=== PATIENT | male | born 1970 | race Caucasian/White ===

== ENCOUNTER 2017-05-05 17:02 | Inpatient (IN) | payer MEDICAID ==
[~2017-05-05] VITALS: Ht 177.8 cm; Wt 101.2 kg
[2017-05-05] MEDS ORDERED: SODIUM CHLORIDE 0.9% 1,000 ML IV ONE (18:49)
[2017-05-05] MEDS ORDERED: FOLIC ACID 1 MG, THIAMINE HCL 100 MG, MVI, ADULT NO.1 10 ML in DEXTROSE 5% WATER 1,000 ML IV ONE ×4 (19:00)
[2017-05-05] MEDS ORDERED: LEVETIRACETAM 500MG PREMIX 100 ML IV ONE (19:00)
[2017-05-05] MEDS ORDERED: LORAZEPAM 2MG/ML CPJ IV ONE (19:00)
[2017-05-05 19:37] LABS: BASOPHILS % 0.9 % (0.0-2.0); EOSINOPHILS % 0.4 % (0.0-5.0); HEMATOCRIT. 39.8 % (42.0-52.0); HEMOGLOBIN. 13.6 g/dL (14.0-18.0); LYMPHOCYTES % 16.2 % (20.0-50.0); MEAN CORPUSCULAR HEMOGLOBIN 32.3 pg (28.0-32.0); MEAN CORPUSCULAR VOLUME 94.6 fL (80.0-94.0); MEAN PLATELET VOLUME 8.6 fl (7.4-10.4); MONOCYTES % 6.3 % (2.0-8.0); NEUTROPHILS % 76.2 % (40.0-76.0); RED BLOOD CELL COUNT 4.21 mill/uL (4.7-6.1); RED CELL DISTRIBUTION WIDTH 13.6 % (11.6-14.6)
[2017-05-05 19:42] LABS: PLATELET 40 x1000/uL (130-400)
[2017-05-05 19:44] LABS: CHLORIDE 96 mEq/L (98-107)
[2017-05-05 19:47] LABS: CARBON DIOXIDE 28 mEq/L (21-32)
[2017-05-05 19:49] LABS: ETHANOL BLOOD < 10 mg/dL
[2017-05-05 19:55] LABS: PHENOBARBITAL <2.1 ug/mL ug/mL (15.0-40.0)
[2017-05-05 20:23] LABS: CARBAMAZEPINE < 0.5 ug/mL (4-12); VALPROIC ACID < 3.0 ug/mL (50-100)
[2017-05-05 20:54] LABS: *AMPHETAMINES SCREEN URINE NEGATIVE (NEGATIVE); *BARBITURATES SCREEN URINE NEGATIVE (NEGATIVE); *BENZODIAZEPINES SCREEN URINE NEGATIVE (NEGATIVE); *COCAINE SCREEN URINE NEGATIVE (NEGATIVE); CANNABINOID URINE SCREEN NEGATIVE (NEGATIVE); METHADONE URINE SCREEN NEGATIVE (NEGATIVE); OPIATES URINE SCREEN NEGATIVE (NEGATIVE); PHENCYCLIDINE URINE SCREEN NEGATIVE (NEGATIVE)
[2017-05-06] MEDS ORDERED: IPRATROPIUM/ALBUTEROL 0.5-3(2.5)MG/3ML NEB INH PRN (01:00)
[2017-05-06] MEDS ORDERED: ACETAMINOPHEN 325MG TABLET PO PRN (01:00)
[2017-05-06] MEDS ORDERED: CLONIDINE 0.1MG TABLET PO PRN (01:00)
[2017-05-06] MEDS ORDERED: LORAZEPAM 2MG/ML CPJ IV PRN (01:00)
[2017-05-06] MEDS ORDERED: ONDANSETRON HCL 4MG/2ML VIAL IV PRN (01:00)
[2017-05-06] MEDS ORDERED: ENOXAPARIN 40MG/0.4ML SYR SUBCUT SCH (01:00)
[2017-05-06] MEDS ORDERED: HYDROCODONE/ACETAMINOPHEN 5/325MG TABLET PO PRN (01:00)
[2017-05-06] MEDS ORDERED: MAGNESIUM/ALUMINUM HYDROXIDE/SIMETHICONE 30ML UDC PO PRN (01:00)
[2017-05-06 01:30] VITALS: BP 129/69
[2017-05-06] MEDS: SODIUM CHLORIDE 0.9% 1,000 ML IV SCH ×2 (02:23→15:40)
[2017-05-06 04:00] VITALS: BP 106/53
[2017-05-06 05:17] LABS: CLARITY URINE CLEAR (CLEAR); COLOR URINE YELLOW (YELLOW); KETONES URINE NEGATIVE (NEGATIVE); LEUKOCYTE ESTERASE URINE NEGATIVE (NEGATIVE); NITRITE URINE NEGATIVE (NEGATIVE); OCCULT BLOOD URINE NEGATIVE (NEGATIVE); PH URINE 6.5 (4.5-8.0); PROTEIN URINE NEGATIVE (NEGATIVE); SPECIFIC GRAVITY URINE 1.008 (1.005-1.030)
[2017-05-06] MEDS: CHLORDIAZEPOXIDE 25MG CAPSULE PO SCH ×3 (06:30→21:41)
[2017-05-06 07:02] LABS: BASOPHILS % 0.6 % (0.0-2.0); EOSINOPHILS % 2.4 % (0.0-5.0); HEMATOCRIT. 36.8 % (42.0-52.0); HEMOGLOBIN. 12.4 g/dL (14.0-18.0); LYMPHOCYTES % 23.2 % (20.0-50.0); MEAN CORPUSCULAR HEMOGLOBIN 31.9 pg (28.0-32.0); MEAN CORPUSCULAR VOLUME 94.4 fL (80.0-94.0); MEAN PLATELET VOLUME 9.2 fl (7.4-10.4); MONOCYTES % 7.2 % (2.0-8.0); NEUTROPHILS % 66.6 % (40.0-76.0); RED CELL DISTRIBUTION WIDTH 13.8 % (11.6-14.6)
[2017-05-06 07:28] LABS: PLATELET 33 x1000/uL (130-400)
[2017-05-06 08:00] VITALS: BP 105/55
[2017-05-06 08:00] LABS: CARBON DIOXIDE 26 mEq/L (21-32); CHLORIDE 101 mEq/L (98-107)
[2017-05-06 08:11] LABS: CREATINE KINASE 441 IU/L (39-308); CREATINE KINASE MB FRACTION 6.7 ng/mL (0.5-3.6); HDL CHOLESTEROL 13 mg/dL (40-59); LDL CHOLESTEROL 144 mg/dL (5-100); TROPONIN I < 0.02 ng/mL (0.00-0.04)
[2017-05-06] MEDS: MULTIVITAMINS,THER W-MINERALS TABLET PO SCH (08:28)
[2017-05-06] MEDS: FOLIC ACID 1MG TABLET PO SCH (08:28)
[2017-05-06] MEDS: THIAMINE HCL 100MG TABLET PO SCH (08:28)
[2017-05-06] MEDS: LEVETIRACETAM 500MG TABLET PO SCH ×2 (08:28→21:40)
[2017-05-06] MEDS ORDERED: POTASSIUM CHLORIDE 20MEQ TABLET SR PO NR (11:30)
[2017-05-06 12:00] VITALS: BP 111/67
[2017-05-06 16:00] VITALS: BP 124/79
[2017-05-06 16:47] LABS: CREATINE KINASE 366 IU/L (39-308); TROPONIN I < 0.02 ng/mL (0.00-0.04)
[2017-05-06 16:48] LABS: CREATINE KINASE MB FRACTION 5.4 ng/mL (0.5-3.6)
[2017-05-06 17:51] LABS: HEPATITIS B SURFACE ANTIGEN NEGATIVE
[2017-05-06 18:19] LABS: HEPATITIS B CORE AB IGM NEGATIVE
[2017-05-06 18:20] LABS: HEPATITIS A AB IGM NEGATIVE (NEGATIVE)
[2017-05-06 19:39] VITALS: BP 122/83
[2017-05-07] VITALS: BP 134/79
[2017-05-07 04:00] VITALS: BP 118/78
[2017-05-07] MEDS: CHLORDIAZEPOXIDE 25MG CAPSULE PO SCH (05:05)
[2017-05-07] MEDS: SODIUM CHLORIDE 0.9% 1,000 ML IV SCH (05:13)
[2017-05-07 07:24] LABS: BASOPHILS % 1.1 % (0.0-2.0); EOSINOPHILS % 3.4 % (0.0-5.0); HEMOGLOBIN. 12.2 g/dL (14.0-18.0); LYMPHOCYTES % 26.7 % (20.0-50.0); MEAN CORPUSCULAR HEMOGLOBIN 32.1 pg (28.0-32.0); MEAN CORPUSCULAR VOLUME 94.8 fL (80.0-94.0); MEAN PLATELET VOLUME 9.1 fl (7.4-10.4); NEUTROPHILS % 60.8 % (40.0-76.0); RED CELL DISTRIBUTION WIDTH 13.5 % (11.6-14.6)
[2017-05-07 07:59] LABS: PLATELET 35 x1000/uL (130-400)
[2017-05-07 08:00] VITALS: BP 147/83
[2017-05-07 08:06] LABS: CARBON DIOXIDE 23 mEq/L (21-32); CHLORIDE 105 mEq/L (98-107)
[2017-05-07] MEDS: FOLIC ACID 1MG TABLET PO SCH (08:16)
[2017-05-07] MEDS: THIAMINE HCL 100MG TABLET PO SCH (08:16)
[2017-05-07] MEDS: LEVETIRACETAM 500MG TABLET PO SCH (08:16)
[2017-05-07] MEDS: MULTIVITAMINS,THER W-MINERALS TABLET PO SCH (08:16)
[2017-05-07 10:40] LABS: PLATELET ESTIMATE MARKEDLY DECREASED
[2017-05-08 08:00] VITALS: BP 124/42
== END 2017-05-07 10:15 | disposition left against medical advice (07) | DRG 770 ==
LOC: ER 17:06 → 8WST 21:33 → EDBEDREQTM 21:37 → EDBEDREQ 21:37 → ENRESERV 22:30
PROVIDERS: ADMIT Internal Medicine; ATTEND Internal Medicine
DX: F10.239 Alcohol dependence with withdrawal, unspecified (principal); D69.59 Other secondary thrombocytopenia; G40.409 Other generalized epilepsy and epileptic syndromes, not intractable, without status epilepticus; E78.5 Hyperlipidemia, unspecified; E87.6 Hypokalemia; F17.200 Nicotine dependence, unspecified, uncomplicated; K76.9 Liver disease, unspecified; Z91.14 Patient's other noncompliance with medication regimen; Z91.19 Patient's noncompliance with other medical treatment and regimen; Z91.013 Allergy to seafood
CPT/HCPCS: 36415; 70450; 71045; 76705; 80053; 80061; 80156; 80165; 80184; 80185; 80305; 81003; 82550; 82553; 84443; 84484; 85025; 86705; 86709; 86803; 87340; 93005; 93970; 96374; 96375; 97162; 99285; G0482; J1953; J2060; J3411; J3490; J7030; J7070

== ENCOUNTER 2017-11-16 08:17 | Inpatient (IN) | payer SELFPAY ==
[~2017-11-16] VITALS: Ht 177.8 cm; Wt 100.7 kg
[2017-11-16] MEDS ORDERED: SODIUM CHLORIDE 0.9% 1,000 ML IV ONE (08:28)
[2017-11-16] MEDS ORDERED: MIDAZOLAM HCL 2 MG/2 ML VIAL IV ONE (08:30)
[2017-11-16] MEDS ORDERED: CHLORDIAZEPOXIDE 25MG CAPSULE PO ONE (08:30)
[2017-11-16] MEDS ORDERED: LEVETIRACETAM 1000MG/100ML 100 ML IV ONE (08:30)
[2017-11-16 08:51] LABS: BASOPHILS % 0.3 % (0.0-2.0); EOSINOPHILS % 1.3 % (0.0-5.0); HEMATOCRIT. 38.3 % (42.0-52.0); HEMOGLOBIN. 13.1 g/dL (14.0-18.0); LYMPHOCYTES % 15.7 % (20.0-50.0); MEAN CORPUSCULAR HEMOGLOBIN 32.5 pg (28.0-32.0); MEAN CORPUSCULAR VOLUME 95.1 fL (80.0-94.0); MONOCYTES % 7.5 % (2.0-8.0); NEUTROPHILS % 75.2 % (40.0-76.0); PLATELET 68 x1000/uL (130-400); RED BLOOD CELL COUNT 4.02 mill/uL (4.7-6.1); RED CELL DISTRIBUTION WIDTH 14.1 % (11.6-14.6)
[2017-11-16 08:56] LABS: CHLORIDE 97 mEq/L (98-107)
[2017-11-16 08:59] LABS: INR 1.1; PARTIAL THROMBOPLASTIN TIME 27.3 sec (23.4-31.0)
[2017-11-16 09:00] LABS: ETHANOL BLOOD < 10 mg/dL
[2017-11-16 09:04] LABS: CREATINE KINASE 270 IU/L (39-308)
[2017-11-16 09:10] LABS: *COCAINE SCREEN URINE NEGATIVE (NEGATIVE); CANNABINOID URINE SCREEN NEGATIVE (NEGATIVE); METHADONE URINE SCREEN NEGATIVE (NEGATIVE); OPIATES URINE SCREEN NEGATIVE (NEGATIVE)
[2017-11-16 09:11] LABS: *AMPHETAMINES SCREEN URINE NEGATIVE (NEGATIVE); *BARBITURATES SCREEN URINE NEGATIVE (NEGATIVE); *BENZODIAZEPINES SCREEN URINE NEGATIVE (NEGATIVE); PHENCYCLIDINE URINE SCREEN NEGATIVE (NEGATIVE)
[2017-11-16 13:30] VITALS: BP 115/73
[2017-11-16] MEDS ORDERED: ONDANSETRON HCL 4MG/2ML VIAL IV PRN (15:00)
[2017-11-16] MEDS ORDERED: DEXTROSE 5% WATER 1,000 ML IV SCH (15:30)
[2017-11-16] MEDS: SODIUM CHLORIDE 0.9% 1,000 ML IV SCH (16:43)
[2017-11-16] MEDS ORDERED: FOLIC ACID 1 MG, THIAMINE HCL 100 MG, MVI, ADULT NO.1 10 ML in DEXTROSE 5% WATER 1,000 ML IV SCH ×4 (17:00)
[2017-11-16 20:00] VITALS: BP 133/80
[2017-11-16] MEDS: CHLORDIAZEPOXIDE 5 MG CAPSULE PO SCH (21:26)
[2017-11-17] VITALS: BP 131/77
[2017-11-17] MEDS: CHLORDIAZEPOXIDE 5 MG CAPSULE PO SCH ×3 (06:25→21:46)
[2017-11-17] MEDS: SODIUM CHLORIDE 0.9% 1,000 ML IV SCH ×2 (06:25→11:45)
[2017-11-17 07:34] LABS: BASOPHILS % 2.4 % (0.0-2.0); EOSINOPHILS % 5.1 % (0.0-5.0); HEMATOCRIT. 37.1 % (42.0-52.0); HEMOGLOBIN. 12.7 g/dL (14.0-18.0); MEAN CORPUSCULAR HEMOGLOBIN 32.3 pg (28.0-32.0); MEAN CORPUSCULAR VOLUME 94.3 fL (80.0-94.0); MEAN PLATELET VOLUME 8.5 fl (7.4-10.4); MONOCYTES % 9.7 % (2.0-8.0); NEUTROPHILS % 57.8 % (40.0-76.0); RED BLOOD CELL COUNT 3.93 mill/uL (4.7-6.1); RED CELL DISTRIBUTION WIDTH 13.5 % (11.6-14.6)
[2017-11-17 07:38] LABS: PLATELET 48 x1000/uL (130-400)
[2017-11-17 08:00] VITALS: BP 120/72
[2017-11-17 08:44] LABS: CHLORIDE 102 mEq/L (98-107)
[2017-11-17 09:37] LABS: AMYLASE 157 IU/L (25-115)
[2017-11-17] MEDS ORDERED: POTASSIUM CHLORIDE 20MEQ TABLET SR PO SCH (10:30)
[2017-11-17 12:00] VITALS: BP 125/73
[2017-11-17 16:00] VITALS: BP 128/74
[2017-11-17] MEDS ORDERED: FOLIC ACID 1 MG, THIAMINE HCL 100 MG, MVI, ADULT NO.1 10 ML in DEXTROSE 5% WATER 1,000 ML IV SCH ×4 (18:30)
[2017-11-17 20:00] VITALS: BP 127/78
[2017-11-17] MEDS: LEVETIRACETAM 500MG TABLET PO SCH (21:46)
[2017-11-18] VITALS: BP 132/94
[2017-11-18] MEDS: LORAZEPAM 2MG/ML CPJ IV PRN ×2 (00:56→04:40)
[2017-11-18 04:00] VITALS: BP 110/72
[2017-11-18] MEDS: CHLORDIAZEPOXIDE 5 MG CAPSULE PO SCH ×2 (04:40→15:01)
[2017-11-18 07:52] LABS: BASOPHILS % 0.7 % (0.0-2.0); EOSINOPHILS % 6.1 % (0.0-5.0); HEMATOCRIT. 38.7 % (42.0-52.0); HEMOGLOBIN. 13.2 g/dL (14.0-18.0); LYMPHOCYTES % 23.4 % (20.0-50.0); MEAN CORPUSCULAR HEMOGLOBIN 32.4 pg (28.0-32.0); MEAN CORPUSCULAR VOLUME 95.2 fL (80.0-94.0); MEAN PLATELET VOLUME 8.5 fl (7.4-10.4); MONOCYTES % 11.8 % (2.0-8.0); PLATELET 56 x1000/uL (130-400); RED BLOOD CELL COUNT 4.07 mill/uL (4.7-6.1); RED CELL DISTRIBUTION WIDTH 13.7 % (11.6-14.6)
[2017-11-18 08:00] VITALS: BP 108/75
[2017-11-18] MEDS: LEVETIRACETAM 500MG TABLET PO SCH (08:56)
[2017-11-18 09:09] LABS: CHLORIDE 104 mEq/L (98-107)
[2017-11-18 11:33] LABS: PLATELET ESTIMATE DECREASED
[2017-11-18 12:00] VITALS: BP 108/75
[2017-11-18 16:00] VITALS: BP 117/73
[2017-11-18 16:30] VITALS: BP 117/63
== END 2017-11-18 17:15 | disposition home or self-care (01) | DRG 282 ==
LOC: ER 08:17 → 5WST 09:05 → EDBEDREQ 09:08 → ENRESERV 12:26
PROVIDERS: ADMIT Internal Medicine; ATTEND Internal Medicine
DX: K85.20 Alcohol induced acute pancreatitis without necrosis or infection (principal); D69.6 Thrombocytopenia, unspecified; E78.5 Hyperlipidemia, unspecified; F17.200 Nicotine dependence, unspecified, uncomplicated; R74.0 Nonspecific elevation of levels of transaminase and lactic acid dehydrogenase [LDH]; G40.509 Epileptic seizures related to external causes, not intractable, without status epilepticus; F10.230 Alcohol dependence with withdrawal, uncomplicated; Y90.0 Blood alcohol level of less than 20 mg/100 ml; Z91.14 Patient's other noncompliance with medication regimen; Z88.8 Allergy status to other drugs, medicaments and biological substances
CPT/HCPCS: 36415; 70450; 71045; 80048; 80053; 80061; 80305; 82150; 82550; 83690; 84484; 85025; 85610; 85730; 96361; 96374; 96375; 99291; G0482; J1953; J2060; J2250; J3411; J3490; J7030; J7070

== ENCOUNTER 2018-05-08 11:46 | Emergency (ER) | payer MEDICAID ==
[~2018-05-08] VITALS: Ht 175.3 cm; Wt 90.0 kg
[2018-05-08] MEDS ORDERED: SODIUM CHLORIDE 0.9% 1,000 ML IV ONE (12:11)
[2018-05-08] MEDS ORDERED: LEVETIRACETAM 1000MG/100ML 100 ML IV ONE (12:15)
[2018-05-08 14:01] LABS: BASOPHILS % 1.2 % (0.0-2.0); EOSINOPHILS % 0.7 % (0.0-5.0); HEMATOCRIT. 36.9 % (42.0-52.0); HEMOGLOBIN. 12.4 g/dL (14.0-18.0); LYMPHOCYTES % 11.2 % (20.0-50.0); MEAN CORPUSCULAR HEMOGLOBIN 31.6 pg (28.0-32.0); MEAN PLATELET VOLUME 8.9 fl (7.4-10.4); MONOCYTES % 6.5 % (2.0-8.0); NEUTROPHILS % 80.4 % (40.0-76.0); RED BLOOD CELL COUNT 3.92 mill/uL (4.7-6.1)
[2018-05-08 14:07] LABS: CHLORIDE 98 mEq/L (98-107)
[2018-05-08 14:08] LABS: PLATELET 30 x1000/uL (130-400)
[2018-05-08 14:11] LABS: ETHANOL BLOOD < 10 mg/dL
[2018-05-08 14:21] LABS: PLATELET ESTIMATE SLIGHTLY DECREASED
[2018-05-08 16:46] LABS: CLARITY URINE CLOUDY (CLEAR); COLOR URINE DARK YELLOW (YELLOW); KETONES URINE NEGATIVE (NEGATIVE); LEUKOCYTE ESTERASE URINE NEGATIVE (NEGATIVE); NITRITE URINE NEGATIVE (NEGATIVE); OCCULT BLOOD URINE TRACE (NEGATIVE); PROTEIN URINE TRACE (NEGATIVE); SPECIFIC GRAVITY URINE 1.014 (1.005-1.030)
[2018-05-08 16:57] LABS: *AMPHETAMINES SCREEN URINE NEGATIVE (NEGATIVE); *BARBITURATES SCREEN URINE NEGATIVE (NEGATIVE); *BENZODIAZEPINES SCREEN URINE NEGATIVE (NEGATIVE); *COCAINE SCREEN URINE NEGATIVE (NEGATIVE); CANNABINOID URINE SCREEN NEGATIVE (NEGATIVE); METHADONE URINE SCREEN NEGATIVE (NEGATIVE); OPIATES URINE SCREEN NEGATIVE (NEGATIVE); PHENCYCLIDINE URINE SCREEN NEGATIVE (NEGATIVE)
[2018-05-08] MEDS ORDERED: CHLORDIAZEPOXIDE 25MG CAPSULE PO ONE (17:00)
[2018-05-08 21:30] VITALS: BP 122/81
== END 2018-05-08 21:31 | disposition home or self-care (01) ==
LOC: ER 11:46
DX: R56.9 Unspecified convulsions (principal); F10.20 Alcohol dependence, uncomplicated; Y90.0 Blood alcohol level of less than 20 mg/100 ml; Z91.013 Allergy to seafood
CPT/HCPCS: 36415; 80053; 80305; 81003; 82962; 85025; 96365; 99283; G0482; J1953

== ENCOUNTER 2018-05-29 14:11 | Inpatient (IN) | payer MEDICAID ==
[~2018-05-29] VITALS: Ht 139.7 cm; Wt 99.8 kg
[2018-05-29] MEDS ORDERED: SODIUM CHLORIDE 0.9% 1,000 ML IV ONE (15:26)
[2018-05-29] MEDS ORDERED: LORAZEPAM 1MG TABLET PO ONE (15:30)
[2018-05-29] MEDS ORDERED: LEVETIRACETAM 1000MG/100ML 100 ML IV ONE (15:30)
[2018-05-29 16:28] LABS: BASOPHILS % 1.1 % (0.0-2.0); EOSINOPHILS % 2.4 % (0.0-5.0); HEMATOCRIT. 36.8 % (42.0-52.0); HEMOGLOBIN. 12.5 g/dL (14.0-18.0); LYMPHOCYTES % 17.1 % (20.0-50.0); MEAN CORPUSCULAR HEMOGLOBIN 33.1 pg (28.0-32.0); MEAN CORPUSCULAR VOLUME 97.3 fL (80.0-94.0); MEAN PLATELET VOLUME 8.4 fl (7.4-10.4); NEUTROPHILS % 72.4 % (40.0-76.0); RED BLOOD CELL COUNT 3.78 mill/uL (4.7-6.1); RED CELL DISTRIBUTION WIDTH 15.7 % (11.6-14.6)
[2018-05-29 16:32] LABS: CHLORIDE 97 mEq/L (98-107)
[2018-05-29 16:38] LABS: PLATELET 46 x1000/uL (130-400)
[2018-05-29 16:39] LABS: ETHANOL BLOOD < 10 mg/dL
[2018-05-29 16:50] LABS: INR 1.3; PARTIAL THROMBOPLASTIN TIME 30.6 sec (23.4-31.0); PROTHROMBIN TIME 12.6 sec (9.1-11.1)
[2018-05-29] MEDS ORDERED: ONDANSETRON HCL 4MG/2ML INJ IV PRN (18:15)
[2018-05-29] MEDS ORDERED: LORAZEPAM 2MG/ML CPJ IV PRN (18:15)
[2018-05-29 18:32] LABS: CLARITY URINE CLEAR (CLEAR); COLOR URINE ORANGE (YELLOW); KETONES URINE TRACE (NEGATIVE); LEUKOCYTE ESTERASE URINE TRACE (NEGATIVE); NITRITE URINE NEGATIVE (NEGATIVE); OCCULT BLOOD URINE TRACE (NEGATIVE); PH URINE 6.5 (4.5-8.0); PROTEIN URINE NEGATIVE (NEGATIVE)
[2018-05-29] MEDS: THIAMINE HCL 100MG TABLET PO SCH (18:45)
[2018-05-29] MEDS ORDERED: FOLIC ACID 1 MG, MVI, ADULT NO.1 10 ML in DEXTROSE 5% WATER 1,000 ML IV NR ×3 (18:45)
[2018-05-29 18:52] LABS: *AMPHETAMINES SCREEN URINE PRESUMTIVE POSITIVE (NEGATIVE); *BARBITURATES SCREEN URINE NEGATIVE (NEGATIVE); *BENZODIAZEPINES SCREEN URINE NEGATIVE (NEGATIVE); *COCAINE SCREEN URINE NEGATIVE (NEGATIVE); METHADONE URINE SCREEN NEGATIVE (NEGATIVE); OPIATES URINE SCREEN NEGATIVE (NEGATIVE)
[2018-05-29 18:53] LABS: CANNABINOID URINE SCREEN NEGATIVE (NEGATIVE); PHENCYCLIDINE URINE SCREEN NEGATIVE (NEGATIVE)
[2018-05-29] MEDS ORDERED: LEVETIRACETAM 500MG TABLET PO SCH (21:00)
[2018-05-29] MEDS ORDERED: LEVETIRACETAM 500MG TABLET PO NR (21:11)
[2018-05-30 02:55] VITALS: BP 136/79
[2018-05-30] MEDS ORDERED: TRAZ150T78 PO (03:18)
[2018-05-30] MEDS ORDERED: KEPP500 PO (03:18)
[2018-05-30 04:00] VITALS: BP 106/58
[2018-05-30] MEDS: DEXT 5%/0.45% NACL 1000ML 1,000 ML IV SCH ×2 (04:27→13:40)
[2018-05-30] MEDS: CHLORDIAZEPOXIDE 25MG CAPSULE PO SCH ×3 (04:27→22:27)
[2018-05-30] MEDS: ACETAMINOPHEN 325MG TABLET PO PRN (04:31)
[2018-05-30 08:00] VITALS: BP 106/62
[2018-05-30] MEDS: LEVETIRACETAM 500MG TABLET PO SCH ×2 (09:03→22:27)
[2018-05-30] MEDS: THIAMINE HCL 100MG TABLET PO SCH (09:03)
[2018-05-30 09:07] LABS: CHLORIDE 104 mEq/L (98-107)
[2018-05-30 09:13] LABS: BASOPHILS % 1.2 % (0.0-2.0); EOSINOPHILS % 3.5 % (0.0-5.0); HEMATOCRIT. 35.6 % (42.0-52.0); HEMOGLOBIN. 12.5 g/dL (14.0-18.0); MEAN CORPUSCULAR HEMOGLOBIN 34.3 pg (28.0-32.0); MEAN CORPUSCULAR VOLUME 97.8 fL (80.0-94.0); MEAN PLATELET VOLUME 8.7 fl (7.4-10.4); MONOCYTES % 7.5 % (2.0-8.0); NEUTROPHILS % 67.8 % (40.0-76.0); RED BLOOD CELL COUNT 3.64 mill/uL (4.7-6.1)
[2018-05-30 09:20] LABS: PLATELET 46 x1000/uL (130-400)
[2018-05-30 12:00] VITALS: BP 120/71
[2018-05-30 15:21] LABS: PLATELET ESTIMATE MARKEDLY DECREASED
[2018-05-30 16:00] VITALS: BP 125/76
[2018-05-30] MEDS: CEFTRIAXONE 1,000 MG in DEXTROSE 5% WATER 50 ML IV SCH (17:01)
[2018-05-30] MEDS ORDERED: FOLIC ACID 1 MG, MVI, ADULT NO.1 10 ML in DEXTROSE 5% WATER 1,000 ML IV SCH ×3 (19:00)
[2018-05-30 20:00] VITALS: BP 145/85
[2018-05-31] VITALS: BP 143/83
[2018-05-31] MEDS: FOLIC ACID 1 MG, MVI, ADULT NO.1 10 ML in DEXTROSE 5% WATER 1,000 ML IV SCH ×6 (00:28→23:37)
[2018-05-31] MEDS: ACETAMINOPHEN 325MG TABLET PO PRN (00:30)
[2018-05-31 04:00] VITALS: BP 110/57
[2018-05-31] MEDS: CHLORDIAZEPOXIDE 25MG CAPSULE PO SCH ×3 (05:58→21:27)
[2018-05-31 07:03] LABS: BASOPHILS % 1.2 % (0.0-2.0); EOSINOPHILS % 4.9 % (0.0-5.0); HEMATOCRIT. 36.6 % (42.0-52.0); HEMOGLOBIN. 12.4 g/dL (14.0-18.0); LYMPHOCYTES % 25.5 % (20.0-50.0); MEAN CORPUSCULAR HEMOGLOBIN 33.3 pg (28.0-32.0); MEAN CORPUSCULAR VOLUME 98.4 fL (80.0-94.0); MEAN PLATELET VOLUME 9.2 fl (7.4-10.4); MONOCYTES % 10.1 % (2.0-8.0); NEUTROPHILS % 58.3 % (40.0-76.0); PLATELET 55 x1000/uL (130-400); RED BLOOD CELL COUNT 3.72 mill/uL (4.7-6.1); RED CELL DISTRIBUTION WIDTH 14.9 % (11.6-14.6)
[2018-05-31 08:00] VITALS: BP 120/79
[2018-05-31 08:12] LABS: CHLORIDE 108 mEq/L (98-107)
[2018-05-31] MEDS: LEVETIRACETAM 500MG TABLET PO SCH ×2 (08:41→21:26)
[2018-05-31] MEDS: THIAMINE HCL 100MG TABLET PO SCH (08:41)
[2018-05-31] MEDS: DEXT 5%/0.45% NACL 1000ML 1,000 ML IV SCH (11:22)
[2018-05-31 12:00] VITALS: BP 125/65
[2018-05-31] MEDS: CEFTRIAXONE 1,000 MG in DEXTROSE 5% WATER 50 ML IV SCH (15:19)
[2018-05-31 16:00] VITALS: BP 118/70
[2018-05-31 20:00] VITALS: BP 128/80
[2018-06-01] VITALS: BP 124/81
[2018-06-01 04:00] VITALS: BP 127/79
[2018-06-01] MEDS: ACETAMINOPHEN 325MG TABLET PO PRN (05:01)
[2018-06-01] MEDS: CHLORDIAZEPOXIDE 25MG CAPSULE PO SCH ×3 (06:00→21:55)
[2018-06-01 07:15] LABS: BASOPHILS % 1.1 % (0.0-2.0); EOSINOPHILS % 4.3 % (0.0-5.0); HEMATOCRIT. 36.7 % (42.0-52.0); HEMOGLOBIN. 12.4 g/dL (14.0-18.0); LYMPHOCYTES % 30.1 % (20.0-50.0); MEAN CORPUSCULAR HEMOGLOBIN 33.4 pg (28.0-32.0); MEAN PLATELET VOLUME 8.5 fl (7.4-10.4); MONOCYTES % 11.3 % (2.0-8.0); NEUTROPHILS % 53.2 % (40.0-76.0); PLATELET 66 x1000/uL (130-400); RED BLOOD CELL COUNT 3.71 mill/uL (4.7-6.1); RED CELL DISTRIBUTION WIDTH 15.3 % (11.6-14.6)
[2018-06-01 08:00] VITALS: BP 136/84
[2018-06-01] MEDS: THIAMINE HCL 100MG TABLET PO SCH (08:29)
[2018-06-01] MEDS: LEVETIRACETAM 500MG TABLET PO SCH ×2 (08:29→21:55)
[2018-06-01 09:56] LABS: CHLORIDE 107 mEq/L (98-107)
[2018-06-01 12:00] VITALS: BP 130/83
[2018-06-01] MEDS: DEXT 5%/0.45% NACL 1000ML 1,000 ML IV SCH (12:47)
[2018-06-01] MEDS: LACTULOSE 20G/30ML UDC PO SCH ×2 (13:26→21:55)
[2018-06-01 16:00] VITALS: BP 116/71
[2018-06-01] MEDS ORDERED: VANCOMYCIN 2,000 MG in DEXT 5% WATER 500 ML IV NR (17:00)
[2018-06-01 20:00] VITALS: BP 130/80
[2018-06-01] MEDS: FOLIC ACID 1 MG, MVI, ADULT NO.1 10 ML in DEXTROSE 5% WATER 1,000 ML IV SCH ×3 (23:16)
[2018-06-02] VITALS: BP 106/62
[2018-06-02] MEDS: DEXT 5%/0.45% NACL 1000ML 1,000 ML IV SCH ×3 (03:00→13:00)
[2018-06-02 03:51] VITALS: BP 113/64
[2018-06-02] MEDS: LACTULOSE 20G/30ML UDC PO SCH ×3 (05:29→21:03)
[2018-06-02] MEDS: CHLORDIAZEPOXIDE 25MG CAPSULE PO SCH ×3 (05:29→21:03)
[2018-06-02] MEDS: VANCOMYCIN 1250MG in DEXTROSE 5% WATER 250ML IV SCH ×2 (05:29→18:53)
[2018-06-02 06:58] LABS: BASOPHILS % 1.1 % (0.0-2.0); EOSINOPHILS % 5.4 % (0.0-5.0); HEMATOCRIT. 35.2 % (42.0-52.0); HEMOGLOBIN. 11.9 g/dL (14.0-18.0); LYMPHOCYTES % 30.8 % (20.0-50.0); MEAN CORPUSCULAR HEMOGLOBIN 33.6 pg (28.0-32.0); MEAN CORPUSCULAR VOLUME 99.2 fL (80.0-94.0); MEAN PLATELET VOLUME 8.7 fl (7.4-10.4); MONOCYTES % 13.8 % (2.0-8.0); NEUTROPHILS % 48.9 % (40.0-76.0); PLATELET 68 x1000/uL (130-400); RED BLOOD CELL COUNT 3.55 mill/uL (4.7-6.1); RED CELL DISTRIBUTION WIDTH 15.1 % (11.6-14.6)
[2018-06-02 07:10] LABS: CHLORIDE 103 mEq/L (98-107)
[2018-06-02 08:00] VITALS: BP 133/79
[2018-06-02] MEDS: LEVETIRACETAM 500MG TABLET PO SCH ×2 (08:42→21:03)
[2018-06-02] MEDS: THIAMINE HCL 100MG TABLET PO SCH (08:42)
[2018-06-02 12:00] VITALS: BP 107/61
[2018-06-02 16:00] VITALS: BP 117/70
[2018-06-02 20:00] VITALS: BP 128/81
[2018-06-03] VITALS: BP 120/72
[2018-06-03] MEDS: FOLIC ACID 1 MG, MVI, ADULT NO.1 10 ML in DEXTROSE 5% WATER 1,000 ML IV SCH ×3 (00:35)
[2018-06-03 04:00] VITALS: BP 100/71
[2018-06-03] MEDS: VANCOMYCIN 1250MG in DEXTROSE 5% WATER 250ML IV SCH (05:28)
[2018-06-03] MEDS: LACTULOSE 20G/30ML UDC PO SCH ×2 (05:28→13:41)
[2018-06-03] MEDS: CHLORDIAZEPOXIDE 25MG CAPSULE PO SCH ×2 (05:28→13:41)
[2018-06-03] MEDS: ACETAMINOPHEN 325MG TABLET PO PRN (05:28)
[2018-06-03 06:48] LABS: BASOPHILS % 1.3 % (0.0-2.0); EOSINOPHILS % 5.8 % (0.0-5.0); HEMATOCRIT. 37.3 % (42.0-52.0); HEMOGLOBIN. 12.7 g/dL (14.0-18.0); LYMPHOCYTES % 34.6 % (20.0-50.0); MEAN CORPUSCULAR HEMOGLOBIN 33.9 pg (28.0-32.0); MEAN CORPUSCULAR VOLUME 99.3 fL (80.0-94.0); MEAN PLATELET VOLUME 8.5 fl (7.4-10.4); MONOCYTES % 13.7 % (2.0-8.0); NEUTROPHILS % 44.6 % (40.0-76.0); PLATELET 73 x1000/uL (130-400); RED BLOOD CELL COUNT 3.75 mill/uL (4.7-6.1); RED CELL DISTRIBUTION WIDTH 15.1 % (11.6-14.6)
[2018-06-03 06:57] LABS: CHLORIDE 105 mEq/L (98-107)
[2018-06-03 08:00] VITALS: BP 107/64
[2018-06-03] MEDS: THIAMINE HCL 100MG TABLET PO SCH (08:37)
[2018-06-03] MEDS: LEVETIRACETAM 500MG TABLET PO SCH (08:37)
[2018-06-03] MEDS: DEXT 5%/0.45% NACL 1000ML 1,000 ML IV SCH (11:42)
[2018-06-03] MEDS ORDERED: KEPP500 PO (11:57)
[2018-06-03 12:00] VITALS: BP 128/76
[2018-06-03 12:27] VITALS: BP 128/76
== END 2018-06-03 14:22 | disposition home or self-care (01) | DRG 720 ==
LOC: ER 14:11 → EDBEDREQ 17:12 → ENRESERV 05-30 02:18 → EDBEDREQ 05-30 02:54 → 7WST 05-30 03:16
PROVIDERS: ADMIT Internal Medicine; ATTEND Internal Medicine
DX: A41.9 Sepsis, unspecified organism (principal); D61.818 Other pancytopenia; D69.59 Other secondary thrombocytopenia; E44.1 Mild protein-calorie malnutrition; E87.1 Hypo-osmolality and hyponatremia; E87.8 Other disorders of electrolyte and fluid balance, not elsewhere classified; F10.239 Alcohol dependence with withdrawal, unspecified; F41.9 Anxiety disorder, unspecified; N39.0 Urinary tract infection, site not specified; E66.9 Obesity, unspecified; R74.0 Nonspecific elevation of levels of transaminase and lactic acid dehydrogenase [LDH]; F15.10 Other stimulant abuse, uncomplicated; G40.409 Other generalized epilepsy and epileptic syndromes, not intractable, without status epilepticus; F17.210 Nicotine dependence, cigarettes, uncomplicated; S01.01XA Laceration without foreign body of scalp, initial encounter; X58.XXXA Exposure to other specified factors, initial encounter; K70.9 Alcoholic liver disease, unspecified; Z68.43 Body mass index [BMI] 50.0-59.9, adult; Z91.19 Patient's noncompliance with other medical treatment and regimen; Z91.14 Patient's other noncompliance with medication regimen; Z91.013 Allergy to seafood; Z79.899 Other long term (current) drug therapy; Y93.89 Activity, other specified; Y92.89 Other specified places as the place of occurrence of the external cause; Y99.8 Other external cause status
CPT/HCPCS: 36415; 70551; 71045; 71111; 80048; 80202; 80305; 82140; 83036; 83735; 84145; 93970; 96365; 99285; G0482; J0696; J1953; J3370; J3490; J7030; J7060; J7070

== ENCOUNTER 2018-08-16 17:58 | Inpatient (IN) | payer MEDICAID ==
[~2018-08-16] VITALS: Ht 177.8 cm; Wt 103.4 kg
[~2018-08-16 17:58] MED LIST: KEPP500 PO; TRAZ150T78 PO
[2018-08-16] MEDS ORDERED: SODIUM CHLORIDE 0.9% 1,000 ML IV ONE (18:32)
[2018-08-16] MEDS ORDERED: LEVETIRACETAM 1000MG/100ML 100 ML IV ONE (18:45)
[2018-08-16 19:48] LABS: BASOPHILS % 2.2 % (0.0-2.0); EOSINOPHILS % 7.5 % (0.0-5.0); HEMATOCRIT. 40.7 % (42.0-52.0); HEMOGLOBIN. 13.9 g/dL (14.0-18.0); LYMPHOCYTES % 40.5 % (20.0-50.0); MEAN CORPUSCULAR HEMOGLOBIN 32.3 pg (28.0-32.0); MEAN CORPUSCULAR VOLUME 94.7 fL (80.0-94.0); MEAN PLATELET VOLUME 8.3 fl (7.4-10.4); MONOCYTES % 6.4 % (2.0-8.0); NEUTROPHILS % 43.4 % (40.0-76.0); RED CELL DISTRIBUTION WIDTH 17.9 % (11.6-14.6)
[2018-08-16 19:50] LABS: PLATELET 36 x1000/uL (130-400)
[2018-08-16 19:53] LABS: CHLORIDE 108 mEq/L (98-107)
[2018-08-16 20:08] LABS: ETHANOL BLOOD 472 mg/dL
[2018-08-16] MEDS: SODIUM CHLORIDE 0.9% 1,000 ML IV SCH (22:12)
[2018-08-16] MEDS ORDERED: IPRATROPIUM/ALBUTEROL 0.5-3(2.5)MG/3ML NEB INH PRN (22:15)
[2018-08-16] MEDS ORDERED: ONDANSETRON HCL 4MG/2ML INJ IV PRN (22:15)
[2018-08-16] MEDS ORDERED: GUAIFENESIN 200MG/10ML SUGAR FREE UDC PO PRN (22:15)
[2018-08-16] MEDS ORDERED: CLONIDINE 0.1MG TABLET PO PRN (22:15)
[2018-08-16] MEDS ORDERED: MAGNESIUM/ALUMINUM HYDROXIDE/SIMETHICONE 30ML UDC PO PRN (22:15)
[2018-08-16] MEDS ORDERED: DOCUSATE SODIUM 100MG CAPSULE PO PRN (22:15)
[2018-08-16] MEDS ORDERED: HYDROCODONE/ACETAMINOPHEN 5/325MG TABLET PO PRN (22:15)
[2018-08-16] MEDS ORDERED: LORAZEPAM 2MG/ML CPJ IV PRN (22:15)
[2018-08-16] MEDS ORDERED: MVI, ADULT NO.1 10 ML, FOLIC ACID 1 MG, THIAMINE HCL 100 MG in SODIUM CHLORIDE 0.9% 1,0... IV SCH ×4 (23:00)
[2018-08-17 05:28] LABS: BASOPHILS % 0.2 % (0.0-2.0); EOSINOPHILS % 6.5 % (0.0-5.0); HEMATOCRIT. 38.5 % (42.0-52.0); HEMOGLOBIN. 13.1 g/dL (14.0-18.0); LYMPHOCYTES % 46.8 % (20.0-50.0); MEAN CORPUSCULAR HEMOGLOBIN 32.1 pg (28.0-32.0); MEAN CORPUSCULAR VOLUME 94.9 fL (80.0-94.0); MEAN PLATELET VOLUME 8.3 fl (7.4-10.4); MONOCYTES % 6.9 % (2.0-8.0); NEUTROPHILS % 39.6 % (40.0-76.0); RED BLOOD CELL COUNT 4.06 mill/uL (4.7-6.1); RED CELL DISTRIBUTION WIDTH 17.4 % (11.6-14.6)
[2018-08-17 05:37] LABS: CHLORIDE 111 mEq/L (98-107)
[2018-08-17 05:44] LABS: LDL CHOLESTEROL 92 mg/dL (5-100)
[2018-08-17 05:46] LABS: CREATINE KINASE 197 IU/L (39-308); HDL CHOLESTEROL 17 mg/dL (40-59)
[2018-08-17 05:49] LABS: CREATINE KINASE MB FRACTION 2.8 ng/mL (0.5-3.6)
[2018-08-17] MEDS: LACTULOSE 20G/30ML UDC PO SCH ×3 (06:00→22:31)
[2018-08-17] MEDS: CHLORDIAZEPOXIDE 25MG CAPSULE PO SCH ×3 (06:00→22:31)
[2018-08-17 06:50] LABS: PLATELET 31 x1000/uL (130-400)
[2018-08-17 06:51] LABS: PLATELET ESTIMATE MARKEDLY DECREASED
[2018-08-17] MEDS: SODIUM CHLORIDE 0.9% 1,000 ML IV SCH ×2 (07:47→23:26)
[2018-08-17] MEDS ORDERED: LEVETIRACETAM 500MG PREMIX 100 ML IV SCH (08:00)
[2018-08-17] MEDS ORDERED: LEVETIRACETAM 500 MG in SODIUM CHLORIDE 0.9% 100 ML IV SCH ×2 (09:00→21:00)
[2018-08-17] MEDS: FOLIC ACID 1MG TABLET PO SCH (09:00)
[2018-08-17] MEDS: MULTIVITAMINS,THER W-MINERALS TABLET PO SCH (09:00)
[2018-08-17] MEDS: THIAMINE HCL 100MG TABLET PO SCH (09:00)
[2018-08-17] MEDS ORDERED: POTASSIUM CHLORIDE 20MEQ TABLET SR PO NR (11:00)
[2018-08-17] MEDS ORDERED: IPRATROPIUM/ALBUTEROL 0.5-3(2.5)MG/3ML NEB INH PRN (11:30)
[2018-08-17] MEDS ORDERED: MORPHINE SULFATE 4 MG/ML CPJ (NOT FOR IM USE) IV PRN (11:30)
[2018-08-17] MEDS ORDERED: ONDANSETRON HCL 4MG/2ML INJ IV PRN (11:30)
[2018-08-17 12:26] VITALS: BP 133/80
[2018-08-17 12:33] VITALS: BP 133/80
[2018-08-17 15:51] LABS: INR 1.3; PROTHROMBIN TIME 12.9 sec (9.6-11.0)
[2018-08-17 16:00] VITALS: BP 132/80
[2018-08-17 16:09] LABS: CREATINE KINASE 207 IU/L (39-308)
[2018-08-17 16:11] LABS: CREATINE KINASE MB FRACTION 2.9 ng/mL (0.5-3.6); FERRITIN 148 ng/mL (22-322)
[2018-08-17 16:14] LABS: TOTAL IRON BINDING CAPACITY 236 ug/dL (250-450)
[2018-08-17 16:22] LABS: HEPATITIS B SURFACE ANTIGEN NEGATIVE
[2018-08-17 16:28] LABS: VITAMIN B12 SERUM 1361 pg/mL (211-911)
[2018-08-17 16:31] LABS: FOLIC ACID (FOLATE) SERUM > 20.00 ng/mL (>5.38)
[2018-08-17 16:50] LABS: HEPATITIS A AB IGM NEGATIVE (NEGATIVE)
[2018-08-17] MEDS: GEMFIBROZIL 600MG TABLET PO SCH (17:37)
[2018-08-17 19:16] VITALS: BP_SYST 147; BP_SYST 153; BP_SYST 163; BP_DIAS 82; BP_DIAS 84; BP_DIAS 91
[2018-08-17 20:00] VITALS: BP 165/87
[2018-08-17] MEDS: LEVETIRACETAM 500MG TABLET PO SCH (20:35)
[2018-08-17] MEDS: LORAZEPAM 0.5MG TABLET PO PRN (20:35)
[2018-08-18] VITALS (9 sets, daily range): BP systolic 127–170; BP diastolic 76–94
[2018-08-18] MEDS: LORAZEPAM 0.5MG TABLET PO PRN (01:26)
[2018-08-18] MEDS: CHLORDIAZEPOXIDE 25MG CAPSULE PO SCH ×3 (06:20→21:30)
[2018-08-18] MEDS: LACTULOSE 20G/30ML UDC PO SCH ×3 (06:20→21:30)
[2018-08-18 06:25] LABS: BASOPHILS % 2.1 % (0.0-2.0); EOSINOPHILS % 4.1 % (0.0-5.0); HEMATOCRIT. 35.1 % (42.0-52.0); HEMOGLOBIN. 11.9 g/dL (14.0-18.0); LYMPHOCYTES % 34.1 % (20.0-50.0); MEAN CORPUSCULAR HEMOGLOBIN 32.2 pg (28.0-32.0); MEAN CORPUSCULAR VOLUME 94.5 fL (80.0-94.0); MEAN PLATELET VOLUME 8.5 fl (7.4-10.4); MONOCYTES % 11.1 % (2.0-8.0); NEUTROPHILS % 48.6 % (40.0-76.0); RED BLOOD CELL COUNT 3.71 mill/uL (4.7-6.1); RED CELL DISTRIBUTION WIDTH 16.7 % (11.6-14.6)
[2018-08-18 06:32] LABS: PLATELET 25 x1000/uL (130-400)
[2018-08-18 06:42] LABS: CHLORIDE 103 mEq/L (98-107)
[2018-08-18] MEDS: GEMFIBROZIL 600MG TABLET PO SCH ×2 (08:25→17:31)
[2018-08-18] MEDS: THIAMINE HCL 100MG TABLET PO SCH (08:25)
[2018-08-18] MEDS: MULTIVITAMINS,THER W-MINERALS TABLET PO SCH (08:25)
[2018-08-18] MEDS: LEVETIRACETAM 500MG TABLET PO SCH ×2 (08:25→21:30)
[2018-08-18] MEDS: FOLIC ACID 1MG TABLET PO SCH (08:25)
[2018-08-18] MEDS ORDERED: POTASSIUM CHLORIDE 20MEQ TABLET SR PO SCH (10:15)
[2018-08-18] MEDS: METOPROLOL TARTRATE 25MG TABLET PO SCH ×2 (11:51→21:32)
[2018-08-18] MEDS: SODIUM CHLORIDE 0.9% 1,000 ML IV SCH (11:51)
[2018-08-18 14:34] LABS: *BARBITURATES SCREEN URINE NEGATIVE (NEGATIVE); *BENZODIAZEPINES SCREEN URINE PRESUMTIVE POSITIVE (NEGATIVE); *COCAINE SCREEN URINE NEGATIVE (NEGATIVE); METHADONE URINE SCREEN NEGATIVE (NEGATIVE); OPIATES URINE SCREEN NEGATIVE (NEGATIVE)
[2018-08-18 14:35] LABS: *AMPHETAMINES SCREEN URINE NEGATIVE (NEGATIVE); CANNABINOID URINE SCREEN NEGATIVE (NEGATIVE); PHENCYCLIDINE URINE SCREEN NEGATIVE (NEGATIVE)
[2018-08-18 15:33] LABS: BASOPHILS % 1.3 % (0.0-2.0); EOSINOPHILS % 3.7 % (0.0-5.0); HEMATOCRIT. 37.3 % (42.0-52.0); HEMOGLOBIN. 12.8 g/dL (14.0-18.0); LYMPHOCYTES % 24.9 % (20.0-50.0); MEAN CORPUSCULAR HEMOGLOBIN 32.4 pg (28.0-32.0); MEAN CORPUSCULAR VOLUME 94.6 fL (80.0-94.0); MEAN PLATELET VOLUME 8.4 fl (7.4-10.4); MONOCYTES % 11.3 % (2.0-8.0); NEUTROPHILS % 58.8 % (40.0-76.0); RED BLOOD CELL COUNT 3.94 mill/uL (4.7-6.1); RED CELL DISTRIBUTION WIDTH 17.2 % (11.6-14.6)
[2018-08-18 15:56] LABS: PLATELET 31 x1000/uL (130-400)
[2018-08-18 23:33] LABS: BASOPHILS % 1.2 % (0.0-2.0); EOSINOPHILS % 4.6 % (0.0-5.0); HEMATOCRIT. 37.6 % (42.0-52.0); HEMOGLOBIN. 12.8 g/dL (14.0-18.0); LYMPHOCYTES % 29.1 % (20.0-50.0); MEAN CORPUSCULAR HEMOGLOBIN 32.5 pg (28.0-32.0); MEAN CORPUSCULAR VOLUME 95.3 fL (80.0-94.0); MEAN PLATELET VOLUME 8.6 fl (7.4-10.4); MONOCYTES % 9.7 % (2.0-8.0); NEUTROPHILS % 55.4 % (40.0-76.0); RED BLOOD CELL COUNT 3.95 mill/uL (4.7-6.1); RED CELL DISTRIBUTION WIDTH 16.8 % (11.6-14.6)
[2018-08-18 23:41] LABS: PLATELET 30 x1000/uL (130-400)
[2018-08-19] VITALS: BP 150/90
[2018-08-19] MEDS: SODIUM CHLORIDE 0.9% 1,000 ML IV SCH ×2 (01:16→12:55)
[2018-08-19 04:00] VITALS: BP 150/77
[2018-08-19] MEDS: LACTULOSE 20G/30ML UDC PO SCH ×3 (05:51→21:53)
[2018-08-19] MEDS: CHLORDIAZEPOXIDE 25MG CAPSULE PO SCH ×3 (05:51→21:53)
[2018-08-19 05:54] LABS: EOSINOPHILS % 5.3 % (0.0-5.0); HEMATOCRIT. 37.3 % (42.0-52.0); HEMOGLOBIN. 12.7 g/dL (14.0-18.0); MEAN CORPUSCULAR HEMOGLOBIN 32.6 pg (28.0-32.0); MEAN CORPUSCULAR VOLUME 95.7 fL (80.0-94.0); MEAN PLATELET VOLUME 8.3 fl (7.4-10.4); MONOCYTES % 10.4 % (2.0-8.0); NEUTROPHILS % 47.3 % (40.0-76.0); RED CELL DISTRIBUTION WIDTH 16.8 % (11.6-14.6)
[2018-08-19 06:12] LABS: CHLORIDE 108 mEq/L (98-107); PLATELET 26 x1000/uL (130-400)
[2018-08-19 08:00] VITALS: BP 138/83
[2018-08-19] MEDS: GEMFIBROZIL 600MG TABLET PO SCH ×2 (08:29→17:24)
[2018-08-19] MEDS: LEVETIRACETAM 500MG TABLET PO SCH ×2 (08:29→21:53)
[2018-08-19] MEDS: MULTIVITAMINS,THER W-MINERALS TABLET PO SCH (08:29)
[2018-08-19] MEDS: THIAMINE HCL 100MG TABLET PO SCH (08:29)
[2018-08-19] MEDS: FOLIC ACID 1MG TABLET PO SCH (08:29)
[2018-08-19] MEDS: METOPROLOL TARTRATE 25MG TABLET PO SCH ×2 (08:30→21:53)
[2018-08-19 12:00] VITALS: BP 122/92
[2018-08-19 16:00] VITALS: BP 124/74
[2018-08-19 20:00] VITALS: BP 137/75
[2018-08-20] VITALS: BP_SYST 126; BP_SYST 148; BP_DIAS 77; BP_DIAS 87
[2018-08-20] MEDS: SODIUM CHLORIDE 0.9% 1,000 ML IV SCH ×2 (01:45→13:42)
[2018-08-20 04:00] VITALS: BP 126/77
[2018-08-20] MEDS: LACTULOSE 20G/30ML UDC PO SCH ×3 (06:00→20:36)
[2018-08-20] MEDS: CHLORDIAZEPOXIDE 25MG CAPSULE PO SCH ×3 (06:12→20:34)
[2018-08-20 06:45] LABS: BASOPHILS % 1.5 % (0.0-2.0); HEMATOCRIT. 37.4 % (42.0-52.0); HEMOGLOBIN. 12.9 g/dL (14.0-18.0); LYMPHOCYTES % 28.9 % (20.0-50.0); MEAN CORPUSCULAR HEMOGLOBIN 33.3 pg (28.0-32.0); MEAN CORPUSCULAR VOLUME 96.7 fL (80.0-94.0); MEAN PLATELET VOLUME 8.9 fl (7.4-10.4); NEUTROPHILS % 51.6 % (40.0-76.0); RED BLOOD CELL COUNT 3.87 mill/uL (4.7-6.1); RED CELL DISTRIBUTION WIDTH 16.8 % (11.6-14.6)
[2018-08-20 07:27] LABS: CHLORIDE 109 mEq/L (98-107)
[2018-08-20 07:48] LABS: PLATELET 40 x1000/uL (130-400)
[2018-08-20 08:00] VITALS: BP 134/90
[2018-08-20] MEDS: GEMFIBROZIL 600MG TABLET PO SCH ×2 (08:37→18:38)
[2018-08-20] MEDS: LEVETIRACETAM 500MG TABLET PO SCH ×2 (09:56→20:34)
[2018-08-20] MEDS: THIAMINE HCL 100MG TABLET PO SCH (09:56)
[2018-08-20] MEDS: METOPROLOL TARTRATE 25MG TABLET PO SCH ×2 (09:56→20:33)
[2018-08-20] MEDS: FOLIC ACID 1MG TABLET PO SCH (09:56)
[2018-08-20] MEDS: MULTIVITAMINS,THER W-MINERALS TABLET PO SCH (09:56)
[2018-08-20 15:47] VITALS: BP 130/89
[2018-08-20 20:00] VITALS: BP 126/55
[2018-08-20] MEDS: ACETAMINOPHEN 325MG TABLET PO PRN (20:38)
[2018-08-21 00:18] VITALS: BP 137/52
[2018-08-21] MEDS: SODIUM CHLORIDE 0.9% 1,000 ML IV SCH (03:38)
[2018-08-21 04:00] VITALS: BP 117/67
[2018-08-21 05:13] LABS: HIV SCREEN 4G Non Reactive (Non Reactive)
[2018-08-21] MEDS: CHLORDIAZEPOXIDE 25MG CAPSULE PO SCH ×2 (05:34→14:01)
[2018-08-21] MEDS: LACTULOSE 20G/30ML UDC PO SCH ×2 (05:34→14:01)
[2018-08-21 06:25] LABS: BASOPHILS % 1.2 % (0.0-2.0); EOSINOPHILS % 2.4 % (0.0-5.0); HEMATOCRIT. 37.9 % (42.0-52.0); HEMOGLOBIN. 13.1 g/dL (14.0-18.0); LYMPHOCYTES % 17.1 % (20.0-50.0); MEAN CORPUSCULAR HEMOGLOBIN 33.3 pg (28.0-32.0); MEAN CORPUSCULAR VOLUME 96.3 fL (80.0-94.0); MONOCYTES % 14.5 % (2.0-8.0); NEUTROPHILS % 64.8 % (40.0-76.0); RED BLOOD CELL COUNT 3.93 mill/uL (4.7-6.1); RED CELL DISTRIBUTION WIDTH 16.2 % (11.6-14.6)
[2018-08-21 06:58] LABS: CHLORIDE 106 mEq/L (98-107)
[2018-08-21] MEDS: ACETAMINOPHEN 325MG TABLET PO PRN (07:38)
[2018-08-21 08:00] VITALS: BP 120/72
[2018-08-21 08:12] LABS: PLATELET 49 x1000/uL (130-400)
[2018-08-21] MEDS: GEMFIBROZIL 600MG TABLET PO SCH (08:15)
[2018-08-21] MEDS: FOLIC ACID 1MG TABLET PO SCH (09:36)
[2018-08-21] MEDS: LEVETIRACETAM 500MG TABLET PO SCH (09:36)
[2018-08-21] MEDS: MULTIVITAMINS,THER W-MINERALS TABLET PO SCH (09:36)
[2018-08-21] MEDS: METOPROLOL TARTRATE 25MG TABLET PO SCH (09:36)
[2018-08-21] MEDS: THIAMINE HCL 100MG TABLET PO SCH (09:36)
[2018-08-21 10:20] VITALS: BP 120/72
[2018-08-21 11:52] LABS: PLATELET ESTIMATE MARKEDLY DECREASED
[2018-08-21 12:00] VITALS: BP 117/70
[2018-08-21 13:51] VITALS: BP 117/70
== END 2018-08-21 14:20 | disposition home or self-care (01) | DRG 775 ==
LOC: ER 17:58 → 7WST 20:46 → ENRESERV 08-17 09:58 → ER 08-17 10:29
PROVIDERS: ADMIT Internal Medicine; ATTEND Internal Medicine
DX: F10.129 Alcohol abuse with intoxication, unspecified (principal); D61.818 Other pancytopenia; D72.1 Eosinophilia; I47.1 Supraventricular tachycardia; I48.92 Unspecified atrial flutter; R16.1 Splenomegaly, not elsewhere classified; G40.909 Epilepsy, unspecified, not intractable, without status epilepticus; K70.9 Alcoholic liver disease, unspecified; E03.9 Hypothyroidism, unspecified; E87.6 Hypokalemia; K74.60 Unspecified cirrhosis of liver; K75.9 Inflammatory liver disease, unspecified; K76.0 Fatty (change of) liver, not elsewhere classified; I10 Essential (primary) hypertension; D53.9 Nutritional anemia, unspecified; E66.9 Obesity, unspecified; E78.1 Pure hyperglyceridemia; F17.210 Nicotine dependence, cigarettes, uncomplicated; Y90.8 Blood alcohol level of 240 mg/100 ml or more; Z91.013 Allergy to seafood; Z79.899 Other long term (current) drug therapy; Z88.8 Allergy status to other drugs, medicaments and biological substances; Z68.32 Body mass index [BMI] 32.0-32.9, adult
CPT/HCPCS: 36415; 70551; 71045; 76700; 80048; 80061; 80076; 80305; 80320; 82140; 82550; 82553; 82607; 82728; 82746; 83036; 83540; 83550; 83735; 84439; 84443; 84481; 84484; 86705; 86709; 86803; 87340; 87389; 93005; 93306; 93880; 93970; 96365; 96366; 96367; 99285; J1953; J3411; J3490; J7030; J7050; G0480

== ENCOUNTER 2018-08-25 18:55 | Emergency (ER) | payer MEDICAID ==
[~2018-08-25] VITALS: Ht 177.8 cm; Wt 220.0 kg
[2018-08-25] MEDS ORDERED: ONDANSETRON HCL 4MG/2ML INJ IV STA (20:20)
[2018-08-25] MEDS ORDERED: LORAZEPAM 2MG/ML CPJ IV STA (20:20)
[2018-08-25] MEDS ORDERED: FOLIC ACID 1 MG, THIAMINE HCL 100 MG, MVI, ADULT NO.1 10 ML in DEXTROSE 5% WATER 1,000 ML IV ONE ×4 (20:30)
[2018-08-25 20:41] LABS: HEMATOCRIT. 42.4 % (42.0-52.0); HEMOGLOBIN. 14.4 g/dL (14.0-18.0); MEAN CORPUSCULAR HEMOGLOBIN 32.9 pg (28.0-32.0); PLATELET 116 x1000/uL (130-400); RED BLOOD CELL COUNT 4.37 mill/uL (4.7-6.1); RED CELL DISTRIBUTION WIDTH 16.8 % (11.6-14.6)
[2018-08-25 20:53] LABS: CHLORIDE 109 mEq/L (98-107)
[2018-08-25 21:03] LABS: CREATINE KINASE 95 IU/L (39-308)
[2018-08-25 21:05] LABS: PHENOBARBITAL < 2.1 ug/mL (15.0-40.0)
[2018-08-25 21:12] LABS: CARBAMAZEPINE < 0.5 ug/mL (4-12); ETHANOL BLOOD 408 mg/dL; VALPROIC ACID < 3.0 ug/mL (50-100)
[2018-08-25 22:18] LABS: PLATELET ESTIMATE SLIGHTLY DECREASED
[2018-08-25] MEDS ORDERED: LORAZEPAM 2MG/ML CPJ IV ONE (23:45)
[2018-08-26 05:48] LABS: CLARITY URINE CLEAR (CLEAR); COLOR URINE YELLOW (YELLOW); KETONES URINE NEGATIVE (NEGATIVE); LEUKOCYTE ESTERASE URINE NEGATIVE (NEGATIVE); NITRITE URINE NEGATIVE (NEGATIVE); OCCULT BLOOD URINE NEGATIVE (NEGATIVE); PH URINE 5.5 (4.5-8.0); PROTEIN URINE NEGATIVE (NEGATIVE); SPECIFIC GRAVITY URINE 1.005 (1.005-1.030); UROBILINOGEN URINE 0.2 E.U./dL (0.2-1.0)
[2018-08-26 06:05] LABS: *AMPHETAMINES SCREEN URINE NEGATIVE (NEGATIVE); *BARBITURATES SCREEN URINE NEGATIVE (NEGATIVE); *BENZODIAZEPINES SCREEN URINE PRESUMTIVE POSITIVE (NEGATIVE); *COCAINE SCREEN URINE NEGATIVE (NEGATIVE); CANNABINOID URINE SCREEN NEGATIVE (NEGATIVE); METHADONE URINE SCREEN NEGATIVE (NEGATIVE); OPIATES URINE SCREEN NEGATIVE (NEGATIVE); PHENCYCLIDINE URINE SCREEN NEGATIVE (NEGATIVE)
[2018-08-26] MEDS ORDERED: SODIUM CHLORIDE 0.9% 1,000 ML IV ONE (06:11)
[2018-08-26 08:41] VITALS: BP 106/70
== END 2018-08-26 10:59 | disposition home or self-care (01) ==
LOC: ER 18:55
DX: T51.91XA Toxic effect of unspecified alcohol, accidental (unintentional), initial encounter (principal); R56.9 Unspecified convulsions; G92 Toxic encephalopathy; Z79.899 Other long term (current) drug therapy; Z88.8 Allergy status to other drugs, medicaments and biological substances; Y92.89 Other specified places as the place of occurrence of the external cause
CPT/HCPCS: 36415; 70450; 80053; 80156; 80165; 80184; 80185; 80305; 80307; 80320; 80329; 81003; 82550; 84443; 85025; 93005; 96365; 96366; 96375; 96376; 99284; J2060; J2405; J3411; J3490; J7070; Z7610; G0480

== ENCOUNTER 2018-08-28 14:18 | Emergency (ER) | payer MEDICAID ==
[~2018-08-28] VITALS: Ht 172.7 cm; Wt 85.0 kg
[2018-08-28] MEDS ORDERED: SODIUM CHLORIDE 0.9% 1,000 ML IV ONE (14:51)
[2018-08-28 15:26] LABS: BASOPHILS % 3.9 % (0.0-2.0); EOSINOPHILS % 5.6 % (0.0-5.0); HEMATOCRIT. 41.1 % (42.0-52.0); LYMPHOCYTES % 48.4 % (20.0-50.0); MEAN CORPUSCULAR HEMOGLOBIN 32.4 pg (28.0-32.0); MEAN CORPUSCULAR VOLUME 95.3 fL (80.0-94.0); MEAN PLATELET VOLUME 7.8 fl (7.4-10.4); MONOCYTES % 6.4 % (2.0-8.0); NEUTROPHILS % 35.7 % (40.0-76.0); PLATELET 140 x1000/uL (130-400); RED BLOOD CELL COUNT 4.31 mill/uL (4.7-6.1); RED CELL DISTRIBUTION WIDTH 16.4 % (11.6-14.6)
[2018-08-28 15:28] LABS: CHLORIDE 111 mEq/L (98-107)
[2018-08-28 15:29] LABS: INR 1.1; PROTHROMBIN TIME 11.4 sec (9.6-11.0)
[2018-08-28 15:36] LABS: CLARITY URINE CLEAR (CLEAR); COLOR URINE YELLOW (YELLOW); KETONES URINE NEGATIVE (NEGATIVE); LEUKOCYTE ESTERASE URINE NEGATIVE (NEGATIVE); NITRITE URINE NEGATIVE (NEGATIVE); OCCULT BLOOD URINE NEGATIVE (NEGATIVE); PH URINE 6.5 (4.5-8.0); PROTEIN URINE NEGATIVE (NEGATIVE); SPECIFIC GRAVITY URINE 1.005 (1.005-1.030); UROBILINOGEN URINE 0.2 E.U./dL (0.2-1.0)
[2018-08-28 16:06] LABS: ETHANOL BLOOD 383 mg/dL
[2018-08-28 16:08] LABS: *BENZODIAZEPINES SCREEN URINE PRESUMTIVE POSITIVE (NEGATIVE); *COCAINE SCREEN URINE NEGATIVE (NEGATIVE)
[2018-08-28 16:09] LABS: *AMPHETAMINES SCREEN URINE NEGATIVE (NEGATIVE); CANNABINOID URINE SCREEN NEGATIVE (NEGATIVE); METHADONE URINE SCREEN NEGATIVE (NEGATIVE); OPIATES URINE SCREEN NEGATIVE (NEGATIVE)
[2018-08-28 16:10] LABS: *BARBITURATES SCREEN URINE NEGATIVE (NEGATIVE); PHENCYCLIDINE URINE SCREEN NEGATIVE (NEGATIVE)
[2018-08-28 21:13] VITALS: BP 125/74
== END 2018-08-28 21:13 | disposition home or self-care (01) ==
LOC: ER 14:18
DX: R41.82 Altered mental status, unspecified (principal); G40.909 Epilepsy, unspecified, not intractable, without status epilepticus; Z79.899 Other long term (current) drug therapy; Z88.8 Allergy status to other drugs, medicaments and biological substances
CPT/HCPCS: 36415; 71045; 80053; 80305; 80307; 80320; 80329; 81003; 82962; 85025; 85610; 93005; 96360; 96361; 99284; J7030; G0480

== ENCOUNTER 2018-08-31 23:07 | Emergency (ER) | payer MEDICAID ==
[~2018-08-31] VITALS: Ht 170.2 cm; Wt 82.0 kg
[2018-08-31] MEDS ORDERED: ONDANSETRON HCL 4MG/2ML INJ IV STA (23:39)
[2018-08-31] MEDS ORDERED: SODIUM CHLORIDE 0.9% 1,000 ML IV ONE (23:39)
[2018-08-31] MEDS ORDERED: BACITRACIN ZINC OINT UDPKT TOP ONE (23:45)
[2018-08-31] MEDS ORDERED: LORAZEPAM 2MG/ML CPJ IV ONE (23:45)
[2018-08-31] MEDS ORDERED: CEFAZOLIN 1000MG PREMIX 50 ML IV ONE (23:45)
[2018-08-31] MEDS ORDERED: LIDOCAINE 1%/EPI 1:100,000 10 ML VIAL IJ ONE (23:45)
[2018-08-31] MEDS ORDERED: LEVETIRACETAM 500MG PREMIX 100 ML IV ONE (23:45)
[2018-08-31] MEDS ORDERED: TETANUS, DIPHTHERIA, PERTUSSIS VAC/PF 0.5ML (>7YR OLD) IM ONE (23:45)
[2018-08-31] MEDS ORDERED: LORAZEPAM 2MG/ML CPJ IM ONE (23:45)
[2018-08-31 23:59] LABS: BASOPHILS % 0.4 % (0.0-2.0); EOSINOPHILS % 3.2 % (0.0-5.0); HEMATOCRIT. 36.7 % (42.0-52.0); HEMOGLOBIN. 12.6 g/dL (14.0-18.0); LYMPHOCYTES % 27.8 % (20.0-50.0); MEAN CORPUSCULAR HEMOGLOBIN 32.5 pg (28.0-32.0); MEAN CORPUSCULAR VOLUME 95.2 fL (80.0-94.0); MEAN PLATELET VOLUME 7.7 fl (7.4-10.4); MONOCYTES % 6.4 % (2.0-8.0); NEUTROPHILS % 62.2 % (40.0-76.0); PLATELET 130 x1000/uL (130-400); RED BLOOD CELL COUNT 3.86 mill/uL (4.7-6.1); RED CELL DISTRIBUTION WIDTH 15.5 % (11.6-14.6)
[2018-09-01 00:03] LABS: INR 1.2; PROTHROMBIN TIME 12.5 sec (9.6-11.0)
[2018-09-01 00:05] LABS: CHLORIDE 104 mEq/L (98-107)
[2018-09-01 00:12] LABS: CLARITY URINE CLEAR (CLEAR); COLOR URINE YELLOW (YELLOW); KETONES URINE NEGATIVE (NEGATIVE); LEUKOCYTE ESTERASE URINE NEGATIVE (NEGATIVE); NITRITE URINE NEGATIVE (NEGATIVE); OCCULT BLOOD URINE 1+ (NEGATIVE); PROTEIN URINE NEGATIVE (NEGATIVE); SPECIFIC GRAVITY URINE 1.005 (1.005-1.030)
[2018-09-01] MEDS ORDERED: LIDOCAINE HCL/EPINEPHRINE 1%-EPI 1:100,000 20 ML VIAL INFIL NR (00:15)
[2018-09-01 00:16] LABS: CARBAMAZEPINE < 0.5 ug/mL (4-12); PHENOBARBITAL < 2.1 ug/mL (15.0-40.0)
[2018-09-01 00:19] LABS: ETHANOL BLOOD 329 mg/dL
[2018-09-01 00:22] LABS: *AMPHETAMINES SCREEN URINE PRESUMTIVE POSITIVE (NEGATIVE); *BARBITURATES SCREEN URINE NEGATIVE (NEGATIVE); *BENZODIAZEPINES SCREEN URINE PRESUMTIVE POSITIVE (NEGATIVE); *COCAINE SCREEN URINE NEGATIVE (NEGATIVE)
[2018-09-01 00:23] LABS: CANNABINOID URINE SCREEN NEGATIVE (NEGATIVE); METHADONE URINE SCREEN NEGATIVE (NEGATIVE); OPIATES URINE SCREEN NEGATIVE (NEGATIVE); PHENCYCLIDINE URINE SCREEN NEGATIVE (NEGATIVE)
[2018-09-01 00:27] LABS: CREATINE KINASE 995 IU/L (39-308)
[2018-09-01] MEDS ORDERED: FOLIC ACID 1 MG, THIAMINE HCL 100 MG, MVI, ADULT NO.1 10 ML in DEXTROSE 5% WATER 1,000 ML IV ONE ×4 (02:00)
[2018-09-01] MEDS ORDERED: LORAZEPAM 2MG/ML CPJ IV ONE (03:15)
[2018-09-01 05:01] LABS: CREATINE KINASE 878 IU/L (39-308)
[2018-09-01] MEDS ORDERED: ACETAMINOPHEN 325MG TABLET PO ONE (11:00)
[2018-09-01 11:50] VITALS: BP 118/70
== END 2018-09-01 11:55 | disposition home or self-care (01) ==
LOC: ER 23:07
DX: T51.0X1A Toxic effect of ethanol, accidental (unintentional), initial encounter (principal); T43.621A Poisoning by amphetamines, accidental (unintentional), initial encounter; S01.01XA Laceration without foreign body of scalp, initial encounter; S00.81XA Abrasion of other part of head, initial encounter; M62.82 Rhabdomyolysis; G40.909 Epilepsy, unspecified, not intractable, without status epilepticus; F17.200 Nicotine dependence, unspecified, uncomplicated; Z79.899 Other long term (current) drug therapy; X58.XXXA Exposure to other specified factors, initial encounter; Y93.89 Activity, other specified; Y92.89 Other specified places as the place of occurrence of the external cause; Y99.8 Other external cause status
CPT/HCPCS: 12002; 36415; 70450; 80053; 80156; 80165; 80184; 80185; 80305; 80320; 81003; 82140; 82550; 84443; 85025; 85610; 90471; 90715; 93005; 96365; 96366; 96367; 96368; 96375; 96376; 99284; A4217; J0690; J1953; J2060; J2405; J3411; J3490; J7030; J7070; Z7610; G0480

== ENCOUNTER 2019-01-07 11:22 | Inpatient (IN) | payer MEDICAID ==
[~2019-01-07] VITALS: Ht 177.8 cm; Wt 93.0 kg
[2019-01-07] MEDS ORDERED: SODIUM CHLORIDE 0.9% 1,000 ML IV ONE ×3 (13:31→16:41)
[2019-01-07] MEDS ORDERED: ONDANSETRON HCL 4MG/2ML INJ IV STA (13:31)
[2019-01-07] MEDS ORDERED: LORAZEPAM 2MG/ML CPJ IV ONE (13:45)
[2019-01-07] MEDS ORDERED: FAMOTIDINE 20MG/2ML VIAL IV ONE (13:45)
[2019-01-07 13:58] LABS: BASOPHILS % 2.5 % (0.0-2.0); EOSINOPHILS % 3.7 % (0.0-5.0); HEMATOCRIT. 37.8 % (42.0-52.0); HEMOGLOBIN. 12.9 g/dL (14.0-18.0); LYMPHOCYTES % 49.2 % (20.0-50.0); MEAN CORPUSCULAR VOLUME 90.4 fL (80.0-94.0); MEAN PLATELET VOLUME 7.2 fl (7.4-10.4); MONOCYTES % 6.9 % (2.0-8.0); NEUTROPHILS % 37.7 % (40.0-76.0); PLATELET 61 x1000/uL (130-400); RED BLOOD CELL COUNT 4.18 mill/uL (4.7-6.1); RED CELL DISTRIBUTION WIDTH 18.6 % (11.6-14.6)
[2019-01-07 14:03] LABS: CHLORIDE 107 mEq/L (98-107)
[2019-01-07 14:24] LABS: INR 1.2; PROTHROMBIN TIME 12.2 sec (9.6-11.0)
[2019-01-07 14:36] LABS: ETHANOL BLOOD 413 mg/dL
[2019-01-07 14:47] LABS: CLARITY URINE CLEAR (CLEAR); COLOR URINE YELLOW (YELLOW); KETONES URINE NEGATIVE (NEGATIVE); LEUKOCYTE ESTERASE URINE NEGATIVE (NEGATIVE); NITRITE URINE NEGATIVE (NEGATIVE); OCCULT BLOOD URINE NEGATIVE (NEGATIVE); PROTEIN URINE NEGATIVE (NEGATIVE); SPECIFIC GRAVITY URINE 1.008 (1.005-1.030); UROBILINOGEN URINE 0.2 E.U./dL (0.2-1.0)
[2019-01-07 15:03] LABS: *AMPHETAMINES SCREEN URINE NEGATIVE (NEGATIVE); *BARBITURATES SCREEN URINE NEGATIVE (NEGATIVE); *BENZODIAZEPINES SCREEN URINE NEGATIVE (NEGATIVE); CANNABINOID URINE SCREEN NEGATIVE (NEGATIVE); METHADONE URINE SCREEN NEGATIVE (NEGATIVE); OPIATES URINE SCREEN NEGATIVE (NEGATIVE); PHENCYCLIDINE URINE SCREEN NEGATIVE (NEGATIVE)
[2019-01-07 15:05] LABS: *COCAINE SCREEN URINE NEGATIVE (NEGATIVE)
[2019-01-07] MEDS ORDERED: FOLIC ACID 1 MG, THIAMINE HCL 100 MG, MVI, ADULT NO.1 10 ML in DEXTROSE 5% WATER 1,000 ML IV NR ×4 (17:00)
[2019-01-07] MEDS ORDERED: SODIUM CHLORIDE 0.9% 1000ML BAG (SEPSIS BOLUS) IV ONE (18:45)
[2019-01-07] MEDS ORDERED: CEFTRIAXONE 1 G PREMIX 50 ML IV ONE (18:45)
[2019-01-07] MEDS ORDERED: MAGNESIUM/ALUMINUM HYDROXIDE/SIMETHICONE 30ML UDC PO PRN (19:15)
[2019-01-07] MEDS ORDERED: CLONIDINE 0.1MG TABLET PO PRN (19:15)
[2019-01-07] MEDS ORDERED: ZOLPIDEM TARTRATE 5MG TABLET PO PRN (19:15)
[2019-01-07] MEDS ORDERED: GUAIFENESIN 200MG/10ML SUGAR FREE UDC PO PRN (19:15)
[2019-01-07] MEDS ORDERED: LORAZEPAM 2MG/ML CPJ IV PRN (19:15)
[2019-01-07] MEDS ORDERED: KETOROLAC 15MG/ML VIAL IV PRN (19:15)
[2019-01-07] MEDS ORDERED: NITROGLYCERIN 0.4MG TABLET SL SL PRN (19:15)
[2019-01-07] MEDS ORDERED: DOCUSATE SODIUM 100MG CAPSULE PO PRN (19:15)
[2019-01-07] MEDS ORDERED: IPRATROPIUM/ALBUTEROL 0.5-3(2.5)MG/3ML NEB HHN PRN (19:15)
[2019-01-07] MEDS ORDERED: ONDANSETRON HCL 4MG/2ML INJ IV PRN (19:15)
[2019-01-07] MEDS ORDERED: ACETAMINOPHEN 325MG TABLET PO PRN (19:15)
[2019-01-07 23:30] VITALS: BP 153/76
[2019-01-08] MEDS ORDERED: SODIUM CHLORIDE 0.9% 1,000 ML IV SCH (02:30)
[2019-01-08 04:00] VITALS: BP 134/82
[2019-01-08 07:56] VITALS: BP 130/68
[2019-01-08] MEDS ORDERED: FAMOTIDINE 20MG TABLET PO SCH (09:00)
[2019-01-08 11:49] VITALS: BP 126/72
[2019-01-08 13:22] VITALS: BP 126/72
[2019-01-08] MEDS ORDERED: MVI, ADULT NO.1 10 ML, FOLIC ACID 1 MG, THIAMINE HCL 100 MG in SODIUM CHLORIDE 0.9% 1,0... IV SCH ×4 (16:00)
== END 2019-01-08 13:50 | disposition home or self-care (01) | DRG 775 ==
LOC: ER 11:22 → 5WST 18:36 → EDBEDREQ 19:02 → EDBEDREQTM 19:02 → ENRESERV 22:06
PROVIDERS: ADMIT Internal Medicine; ATTEND Internal Medicine
DX: F10.129 Alcohol abuse with intoxication, unspecified (principal); E87.2 Acidosis; Y90.8 Blood alcohol level of 240 mg/100 ml or more; E86.0 Dehydration; D63.8 Anemia in other chronic diseases classified elsewhere; G40.909 Epilepsy, unspecified, not intractable, without status epilepticus; F17.200 Nicotine dependence, unspecified, uncomplicated
CPT/HCPCS: 36415; 71045; 73130; 80305; 80320; 81003; 83036; 83605; 86850; 86900; 93005; 99291; J0696; J2060; J2405; J3411; J3490; J7030; J7070; G0480

== ENCOUNTER 2019-02-16 18:07 | Emergency (ER) | payer MEDICAID ==
[~2019-02-16] VITALS: Ht 180.3 cm; Wt 102.0 kg
[2019-02-16] MEDS ORDERED: SODIUM CHLORIDE 0.9% 1,000 ML IV ONE (18:42)
[2019-02-16] MEDS ORDERED: MORPHINE SULFATE 4 MG/ML CPJ (NOT FOR IM USE) IV STA (18:42)
[2019-02-16] MEDS ORDERED: ONDANSETRON HCL 4MG/2ML INJ IV STA (18:42)
[2019-02-16] MEDS ORDERED: LEVETIRACETAM 500MG PREMIX 100 ML IV ONE (18:45)
[2019-02-16] MEDS ORDERED: FOLIC ACID 1 MG, THIAMINE HCL 100 MG, MVI, ADULT NO.1 10 ML in DEXTROSE 5% WATER 1,000 ML IV ONE ×4 (18:45)
[2019-02-16 19:20] LABS: BASOPHILS % 1.2 % (0.0-2.0); EOSINOPHILS % 4.8 % (0.0-5.0); HEMATOCRIT. 43.5 % (42.0-52.0); HEMOGLOBIN. 14.7 g/dL (14.0-18.0); LYMPHOCYTES % 53.3 % (20.0-50.0); MEAN CORPUSCULAR HEMOGLOBIN 31.1 pg (28.0-32.0); MEAN CORPUSCULAR VOLUME 92.2 fL (80.0-94.0); MEAN PLATELET VOLUME 7.9 fl (7.4-10.4); MONOCYTES % 6.3 % (2.0-8.0); NEUTROPHILS % 34.4 % (40.0-76.0); PLATELET 75 x1000/uL (130-400); RED BLOOD CELL COUNT 4.71 mill/uL (4.7-6.1)
[2019-02-16 19:24] LABS: CHLORIDE 106 mEq/L (98-107)
[2019-02-16 19:33] LABS: CARBAMAZEPINE < 0.5 ug/mL (4-12); CREATINE KINASE 215 IU/L (39-308); CREATINE KINASE MB FRACTION 4.4 ng/mL (0.5-3.6); VALPROIC ACID < 3.0 ug/mL (50-100)
[2019-02-16 19:54] LABS: ETHANOL BLOOD 394 mg/dL; PHENOBARBITAL < 2.1 ug/mL (15.0-40.0)
[2019-02-16 19:56] LABS: *AMPHETAMINES SCREEN URINE NEGATIVE (NEGATIVE); *BARBITURATES SCREEN URINE NEGATIVE (NEGATIVE); *BENZODIAZEPINES SCREEN URINE NEGATIVE (NEGATIVE); *COCAINE SCREEN URINE NEGATIVE (NEGATIVE); METHADONE URINE SCREEN NEGATIVE (NEGATIVE); OPIATES URINE SCREEN NEGATIVE (NEGATIVE)
[2019-02-16 19:57] LABS: CANNABINOID URINE SCREEN NEGATIVE (NEGATIVE); PHENCYCLIDINE URINE SCREEN NEGATIVE (NEGATIVE)
[2019-02-17] MEDS ORDERED: ACETAMINOPHEN 325MG TABLET PO STA (05:13)
[2019-02-17] MEDS ORDERED: LEVETIRACETAM 500MG TABLET PO ONE (07:00)
[2019-02-17 09:48] VITALS: BP 130/69
== END 2019-02-17 10:06 | disposition home or self-care (01) ==
LOC: ER 18:07
DX: T51.0X1A Toxic effect of ethanol, accidental (unintentional), initial encounter (principal); G93.40 Encephalopathy, unspecified; E86.0 Dehydration; R56.9 Unspecified convulsions; Z59.0 Homelessness; Z98.890 Other specified postprocedural states; Y92.89 Other specified places as the place of occurrence of the external cause
CPT/HCPCS: 36415; 70450; 80053; 80156; 80165; 80184; 80185; 80305; 80320; 82550; 82553; 83690; 83880; 84443; 84484; 85025; 93005; 96361; 96365; 96367; 96375; 99284; J1953; J2270; J2405; J3411; J3490; J7030; J7070; G0480

== ENCOUNTER 2019-03-16 08:31 | Emergency (ER) | payer MEDICAID ==
[~2019-03-16] VITALS: Ht 177.8 cm; Wt 92.0 kg
[2019-03-16] MEDS ORDERED: LEVETIRACETAM 1000MG/100ML 100 ML IV ONE (08:45)
[2019-03-16 09:02] LABS: BASOPHILS % 1.9 % (0.0-2.0); EOSINOPHILS % 1.4 % (0.0-5.0); HEMATOCRIT. 39.9 % (42.0-52.0); HEMOGLOBIN. 13.5 g/dL (14.0-18.0); LYMPHOCYTES % 20.2 % (20.0-50.0); MEAN CORPUSCULAR HEMOGLOBIN 31.3 pg (28.0-32.0); MEAN CORPUSCULAR VOLUME 92.3 fL (80.0-94.0); MEAN PLATELET VOLUME 8.1 fl (7.4-10.4); NEUTROPHILS % 66.5 % (40.0-76.0); RED BLOOD CELL COUNT 4.32 mill/uL (4.7-6.1); RED CELL DISTRIBUTION WIDTH 15.8 % (11.6-14.6)
[2019-03-16 09:09] LABS: PLATELET 40 x1000/uL (130-400)
[2019-03-16 09:10] LABS: CHLORIDE 98 mEq/L (98-107)
[2019-03-16 09:15] LABS: ETHANOL BLOOD < 10 mg/dL
[2019-03-16 09:34] LABS: CLARITY URINE CLEAR (CLEAR); COLOR URINE DARK YELLOW (YELLOW); KETONES URINE 1+ (NEGATIVE); LEUKOCYTE ESTERASE URINE TRACE (NEGATIVE); NITRITE URINE NEGATIVE (NEGATIVE); OCCULT BLOOD URINE 1+ (NEGATIVE); PH URINE 6.5 (4.5-8.0); PROTEIN URINE 2+ (NEGATIVE); SPECIFIC GRAVITY URINE 1.018 (1.005-1.030)
[2019-03-16 09:48] LABS: PLATELET ESTIMATE MARKEDLY DECREASED
[2019-03-16 09:55] LABS: *BARBITURATES SCREEN URINE NEGATIVE (NEGATIVE); *BENZODIAZEPINES SCREEN URINE NEGATIVE (NEGATIVE); *COCAINE SCREEN URINE NEGATIVE (NEGATIVE); CANNABINOID URINE SCREEN NEGATIVE (NEGATIVE)
[2019-03-16 09:56] LABS: *AMPHETAMINES SCREEN URINE NEGATIVE (NEGATIVE); METHADONE URINE SCREEN NEGATIVE (NEGATIVE); OPIATES URINE SCREEN NEGATIVE (NEGATIVE); PHENCYCLIDINE URINE SCREEN NEGATIVE (NEGATIVE)
[2019-03-16] MEDS ORDERED: ACETAMINOPHEN 325MG TABLET PO ONE (10:15)
[2019-03-16 11:41] VITALS: BP 136/78
== END 2019-03-16 11:44 | disposition home or self-care (01) ==
LOC: ER 08:31
DX: R56.9 Unspecified convulsions (principal); Z91.013 Allergy to seafood
CPT/HCPCS: 36415; 80053; 80305; 80320; 81003; 85025; 96365; 99283; J1953; G0480

== ENCOUNTER 2020-02-05 16:19 | Emergency (ER) | payer MEDICAID ==
[~2020-02-05] VITALS: Ht 177.8 cm; Wt 120.0 kg
[2020-02-05 16:28] VITALS: BP 146/94
== END 2020-02-05 17:54 | disposition left against medical advice (07) ==
LOC: ER 16:19
DX: Z53.21 Procedure and treatment not carried out due to patient leaving prior to being seen by health care provider (principal); R56.9 Unspecified convulsions

== ENCOUNTER 2020-02-23 11:07 | Emergency (ER) | payer MEDICAID ==
[~2020-02-23] VITALS: Ht 177.8 cm; Wt 90.0 kg
[2020-02-23] MEDS ORDERED: LEVETIRACETAM 500MG PREMIX 100 ML IV ONE (11:45)
[2020-02-23 13:09] LABS: CHLORIDE 107 mEq/L (98-107)
[2020-02-23 13:11] LABS: HEMATOCRIT. 41.5 % (42.0-52.0); HEMOGLOBIN. 14.1 g/dL (14.0-18.0); MEAN CORPUSCULAR HEMOGLOBIN 32.2 pg (28.0-32.0); MEAN PLATELET VOLUME 8.9 fl (7.4-10.4); PLATELET 52 x1000/uL (130-400); RED BLOOD CELL COUNT 4.37 mill/uL (4.7-6.1)
[2020-02-23 13:32] LABS: *AMPHETAMINES SCREEN URINE NEGATIVE (NEGATIVE); *BARBITURATES SCREEN URINE NEGATIVE (NEGATIVE)
[2020-02-23 13:33] LABS: *BENZODIAZEPINES SCREEN URINE NEGATIVE (NEGATIVE); *COCAINE SCREEN URINE NEGATIVE (NEGATIVE); CANNABINOID URINE SCREEN NEGATIVE (NEGATIVE); METHADONE URINE SCREEN NEGATIVE (NEGATIVE); OPIATES URINE SCREEN NEGATIVE (NEGATIVE); PHENCYCLIDINE URINE SCREEN NEGATIVE (NEGATIVE)
[2020-02-23 13:35] LABS: ETHANOL BLOOD 405 mg/dL
[2020-02-23 14:05] LABS: PLATELET ESTIMATE DECREASED
[2020-02-23 19:00] VITALS: BP 122/85
== END 2020-02-23 19:11 | disposition home or self-care (01) ==
LOC: ER 11:22
DX: S02.2XXA Fracture of nasal bones, initial encounter for closed fracture (principal); R56.9 Unspecified convulsions; X58.XXXA Exposure to other specified factors, initial encounter; Y93.89 Activity, other specified; Y92.89 Other specified places as the place of occurrence of the external cause; Y99.8 Other external cause status; F10.20 Alcohol dependence, uncomplicated; Y90.8 Blood alcohol level of 240 mg/100 ml or more
CPT/HCPCS: 36415; 70450; 70486; 80053; 80305; 80320; 82962; 85025; 93005; 96365; 99285; J1953; G0480

== ENCOUNTER 2020-10-03 18:05 | Emergency (ER) | payer MEDICAID ==
[~2020-10-03] VITALS: Ht 175.3 cm; Wt 100.0 kg
[2020-10-03] MEDS ORDERED: LORAZEPAM 2MG/ML CPJ IV ONE (18:30)
[2020-10-03] MEDS ORDERED: LEVETIRACETAM 1000MG PREMIX 100 ML IV ONE (18:30)
[2020-10-03 20:08] LABS: BASOPHILS % 3.4 % (0.0-2.0); EOSINOPHILS % 5.2 % (0.0-5.0); HEMATOCRIT. 38.3 % (42.0-52.0); HEMOGLOBIN. 12.9 g/dL (14.0-18.0); LYMPHOCYTES % 44.3 % (20.0-50.0); MEAN CORPUSCULAR HEMOGLOBIN 31.1 pg (28.0-32.0); MEAN CORPUSCULAR VOLUME 92.6 fL (80.0-94.0); MEAN PLATELET VOLUME 8.1 fl (7.4-10.4); MONOCYTES % 10.5 % (2.0-8.0); NEUTROPHILS % 36.6 % (40.0-76.0); PLATELET 94 x1000/uL (130-400); RED BLOOD CELL COUNT 4.14 mill/uL (4.7-6.1); RED CELL DISTRIBUTION WIDTH 16.2 % (11.6-14.6)
[2020-10-03 20:54] LABS: CHLORIDE 112 mEq/L (98-107)
[2020-10-03 20:58] LABS: ETHANOL BLOOD 251 mg/dL
[2020-10-03 21:04] LABS: CLARITY URINE CLEAR (CLEAR); COLOR URINE YELLOW (YELLOW); KETONES URINE NEGATIVE (NEGATIVE); LEUKOCYTE ESTERASE URINE NEGATIVE (NEGATIVE); NITRITE URINE NEGATIVE (NEGATIVE); OCCULT BLOOD URINE NEGATIVE (NEGATIVE); PH URINE 5.5 (4.5-8.0); PROTEIN URINE NEGATIVE (NEGATIVE); SPECIFIC GRAVITY URINE 1.006 (1.005-1.030); UROBILINOGEN URINE 0.2 E.U./dL (0.2-1.0)
[2020-10-03 21:27] LABS: *AMPHETAMINES SCREEN URINE NEGATIVE (NEGATIVE)
[2020-10-03 21:28] LABS: *BARBITURATES SCREEN URINE NEGATIVE (NEGATIVE); *BENZODIAZEPINES SCREEN URINE PRESUMTIVE POSITIVE (NEGATIVE); *COCAINE SCREEN URINE NEGATIVE (NEGATIVE); CANNABINOID URINE SCREEN NEGATIVE (NEGATIVE); METHADONE URINE SCREEN NEGATIVE (NEGATIVE); OPIATES URINE SCREEN NEGATIVE (NEGATIVE); PHENCYCLIDINE URINE SCREEN NEGATIVE (NEGATIVE)
[2020-10-03] MEDS ORDERED: IBUP-2029 MT (23:22)
[2020-10-03] MEDS ORDERED: KEPP500 MT (23:22)
[2020-10-03 23:43] VITALS: BP 113/68
== END 2020-10-03 23:48 | disposition home or self-care (01) ==
LOC: ER 18:05
DX: G40.909 Epilepsy, unspecified, not intractable, without status epilepticus (principal); T51.91XA Toxic effect of unspecified alcohol, accidental (unintentional), initial encounter; Y92.9 Unspecified place or not applicable; R45.851 Suicidal ideations; F10.10 Alcohol abuse, uncomplicated; Y90.8 Blood alcohol level of 240 mg/100 ml or more
CPT/HCPCS: 36415; 70450; 80053; 80305; 80320; 81003; 85025; 93005; 96365; 96375; 99285; J1953; J2060; G0480

== ENCOUNTER 2020-10-22 19:37 | Emergency (ER) | payer MEDICAID ==
[~2020-10-22] VITALS: Ht 175.3 cm; Wt 91.0 kg
[~2020-10-22 19:37] MED LIST changes: +IBUP-2029 MT; +KEPP500 MT
[2020-10-22] MEDS ORDERED: LEVETIRACETAM 500MG/5ML CUP PO ONE (20:30)
[2020-10-22 21:43] VITALS: BP 132/86
== END 2020-10-22 21:43 | disposition left against medical advice (07) ==
LOC: ER 19:37
DX: F10.239 Alcohol dependence with withdrawal, unspecified (principal); Y90.9 Presence of alcohol in blood, level not specified; I49.8 Other specified cardiac arrhythmias; R56.9 Unspecified convulsions; F17.210 Nicotine dependence, cigarettes, uncomplicated; Z71.6 Tobacco abuse counseling; Z91.013 Allergy to seafood
CPT/HCPCS: 93005; 99283; 99406

== ENCOUNTER 2021-07-11 12:40 | Emergency (ER) | payer MEDICAID ==
[~2021-07-11] VITALS: Ht 177.8 cm; Wt 100.0 kg
[2021-07-11] MEDS ORDERED: TETANUS, DIPHTHERIA, PERTUSSIS VAC/PF 0.5ML (>10YR OLD) IM ONE (13:00)
[2021-07-11] MEDS ORDERED: LEVETIRACETAM 500MG PREMIX 100 ML IV ONE (13:00)
[2021-07-11] MEDS ORDERED: SODIUM CHLORIDE 0.9% 1,000 ML IV ONE (13:00)
[2021-07-11] MEDS ORDERED: LIDOCAINE HCL/EPINEPHRINE 1%-EPI 1:100,000 20 ML VIAL INFIL ONE (13:00)
[2021-07-11] MEDS ORDERED: ACETAMINOPHEN 325MG TABLET PO ONE (13:00)
[2021-07-11 13:09] LABS: BASOPHILS % 0.3 % (0.0-2.0); EOSINOPHILS % 3.6 % (0.0-5.0); HEMATOCRIT. 37.6 % (42.0-52.0); HEMOGLOBIN. 12.5 g/dL (14.0-18.0); LYMPHOCYTES % 44.8 % (20.0-50.0); MEAN CORPUSCULAR VOLUME 87.3 fL (80.0-94.0); MEAN PLATELET VOLUME 8.2 fl (7.4-10.4); MONOCYTES % 10.1 % (2.0-8.0); NEUTROPHILS % 41.2 % (40.0-76.0); PLATELET 51 x1000/uL (130-400); RED BLOOD CELL COUNT 4.31 mill/uL (4.7-6.1); RED CELL DISTRIBUTION WIDTH 15.7 % (11.6-14.6)
[2021-07-11 13:13] LABS: CHLORIDE 108 mEq/L (98-107)
[2021-07-11 13:29] LABS: ETHANOL BLOOD 386 mg/dL
[2021-07-11 15:24] LABS: CLARITY URINE CLEAR (CLEAR); COLOR URINE DARK YELLOW (YELLOW); KETONES URINE TRACE (NEGATIVE); LEUKOCYTE ESTERASE URINE NEGATIVE (NEGATIVE); NITRITE URINE NEGATIVE (NEGATIVE); OCCULT BLOOD URINE TRACE (NEGATIVE); PROTEIN URINE 1+ (NEGATIVE); SPECIFIC GRAVITY URINE 1.018 (1.005-1.030)
[2021-07-11 16:19] LABS: METHADONE URINE SCREEN NEGATIVE (NEGATIVE); OPIATES URINE SCREEN NEGATIVE (NEGATIVE)
[2021-07-11 16:20] LABS: *AMPHETAMINES SCREEN URINE NEGATIVE (NEGATIVE); *BARBITURATES SCREEN URINE NEGATIVE (NEGATIVE); *BENZODIAZEPINES SCREEN URINE NEGATIVE (NEGATIVE); *COCAINE SCREEN URINE NEGATIVE (NEGATIVE); CANNABINOID URINE SCREEN NEGATIVE (NEGATIVE); PHENCYCLIDINE URINE SCREEN NEGATIVE (NEGATIVE)
[2021-07-11 17:17] VITALS: BP 127/79
== END 2021-07-11 17:18 | disposition home or self-care (01) ==
LOC: ER 12:43
DX: S01.01XA Laceration without foreign body of scalp, initial encounter (principal); F10.229 Alcohol dependence with intoxication, unspecified; D61.818 Other pancytopenia; Y90.8 Blood alcohol level of 240 mg/100 ml or more; Z79.899 Other long term (current) drug therapy; W18.39XA Other fall on same level, initial encounter; Y93.89 Activity, other specified; Y92.89 Other specified places as the place of occurrence of the external cause; Y99.8 Other external cause status
CPT/HCPCS: 12002; 36415; 70450; 70486; 71045; 72125; 80053; 80305; 80320; 81003; 84484; 85025; 90471; 90715; 93005; 96365; 99285; J1953; J3490; J7030; Z7610; G0480

== ENCOUNTER 2021-07-21 09:38 | Emergency (ER) | payer MEDICAID ==
[~2021-07-21] VITALS: Ht 177.8 cm; Wt 96.0 kg
[2021-07-21 10:26] VITALS: BP 145/69
== END 2021-07-21 10:27 | disposition home or self-care (01) ==
LOC: ER 09:38
DX: Z48.02 Encounter for removal of sutures (principal); R56.9 Unspecified convulsions; Z91.013 Allergy to seafood
CPT/HCPCS: 99281; A4217

== ENCOUNTER 2022-02-17 12:12 | Emergency (ER) | payer MEDICAID ==
[~2022-02-17] VITALS: Ht 175.3 cm; Wt 85.0 kg
[2022-02-17] MEDS ORDERED: LEVETIRACETAM 1000MG PREMIX 100 ML IV NR (13:00)
[2022-02-17] MEDS ORDERED: LEVETIRACETAM 500MG PREMIX 100 ML IV ONE ×2 (13:00)
[2022-02-17 13:47] LABS: BASOPHILS % 3.1 % (0.0-2.0); HEMATOCRIT. 35.1 % (42.0-52.0); HEMOGLOBIN. 11.7 g/dL (14.0-18.0); LYMPHOCYTES % 42.5 % (20.0-50.0); MEAN CORPUSCULAR HEMOGLOBIN 29.6 pg (28.0-32.0); MEAN CORPUSCULAR VOLUME 88.6 fL (80.0-94.0); MONOCYTES % 13.8 % (2.0-8.0); NEUTROPHILS % 37.6 % (40.0-76.0); RED BLOOD CELL COUNT 3.96 mill/uL (4.7-6.1); RED CELL DISTRIBUTION WIDTH 17.1 % (11.6-14.6)
[2022-02-17 13:54] LABS: PLATELET 38 x1000/uL (130-400)
[2022-02-17 13:57] LABS: INR 1.2; PROTHROMBIN TIME 12.7 sec (9.6-11.0)
[2022-02-17 13:58] LABS: CHLORIDE 104 mEq/L (98-107)
[2022-02-17 14:15] LABS: ETHANOL BLOOD 424 mg/dL
[2022-02-17 14:21] LABS: PLATELET ESTIMATE MARKEDLY DECREASED
[2022-02-17 16:00] VITALS: BP 98/49
[2022-02-17] MEDS ORDERED: FOLIC ACID 1 MG, THIAMINE HCL 100 MG, MVI, ADULT NO.1 10 ML in DEXTROSE 5% WATER 1,000 ML IV NR ×4 (16:00)
[2022-02-17] MEDS ORDERED: LEVE1000 MT (17:02)
== END 2022-02-17 17:27 | disposition home or self-care (01) ==
LOC: ER 12:12
DX: G40.909 Epilepsy, unspecified, not intractable, without status epilepticus (principal); F10.129 Alcohol abuse with intoxication, unspecified; Y90.8 Blood alcohol level of 240 mg/100 ml or more; D61.818 Other pancytopenia; F17.210 Nicotine dependence, cigarettes, uncomplicated; Z91.013 Allergy to seafood
CPT/HCPCS: 36415; 71045; 80053; 80320; 85025; 85610; 96365; 96367; 99284; J1953; J3411; J3490; J7070; G0480

== ENCOUNTER 2022-07-27 14:10 | Emergency (ER) | payer MEDICAID, OTHER ==
[~2022-07-27] VITALS: Ht 175.3 cm; Wt 70.0 kg
[~2022-07-27 14:10] MED LIST changes: +LEVE1000 MT
[2022-07-27 14:26] VITALS: BP 146/94
== END 2022-07-27 15:30 | disposition left against medical advice (07) ==
LOC: ER 14:10
DX: Z53.21 Procedure and treatment not carried out due to patient leaving prior to being seen by health care provider (principal)
CPT/HCPCS: 93005; 99281

== ENCOUNTER 2022-10-07 15:45 | Emergency (ER) | payer MEDICAID, OTHER ==
[~2022-10-07] VITALS: Ht 180.3 cm; Wt 81.0 kg
[2022-10-07 15:49] VITALS: BP 134/90
[2022-10-07] MEDS ORDERED: LEVETIRACETAM 500MG PREMIX 100 ML IV ONE ×2 (16:30)
[2022-10-07 16:47] LABS: BASOPHILS % 3.3 % (0.0-2.0); EOSINOPHILS % 4.7 % (0.0-5.0); HEMATOCRIT. 32.6 % (42.0-52.0); HEMOGLOBIN. 10.6 g/dL (14.0-18.0); MEAN CORPUSCULAR HEMOGLOBIN 26.9 pg (28.0-32.0); MEAN CORPUSCULAR VOLUME 82.6 fL (80.0-94.0); MEAN PLATELET VOLUME 7.9 fl (7.4-10.4); MONOCYTES % 12.8 % (2.0-8.0); NEUTROPHILS % 41.2 % (40.0-76.0); RED BLOOD CELL COUNT 3.95 mill/uL (4.7-6.1); RED CELL DISTRIBUTION WIDTH 17.9 % (11.6-14.6)
[2022-10-07 16:56] LABS: CHLORIDE 110 mEq/L (98-107)
[2022-10-07 17:25] LABS: ETHANOL BLOOD 417 mg/dL (-10)
[2022-10-07] MEDS ORDERED: MIDAZOLAM HCL 2 MG/2 ML VIAL IM ONE (17:30)
[2022-10-12 14:41] LABS: PLATELET 46 x1000/uL (130-400)
== END 2022-10-07 18:01 | disposition left against medical advice (07) ==
LOC: ER 15:45
DX: R56.9 Unspecified convulsions (principal); Z91.013 Allergy to seafood
CPT/HCPCS: 36415; 80053; 80320; 85025; 93005; 96365; 99284; J1953; J2250; Z7610; G0480

== ENCOUNTER 2022-11-27 17:54 | Emergency (ER) | payer MEDICAID, OTHER ==
[~2022-11-27] VITALS: Ht 172.7 cm; Wt 95.0 kg
[2022-11-27 17:57] VITALS: BP 152/89; PULSE 92; RESP 18; TEMP 98.7; O2SAT 99
[2022-11-27 19:06] LABS: HEMATOCRIT. 25.9 % (42.0-52.0); HEMOGLOBIN. 8.4 g/dL (14.0-18.0); MEAN CORPUSCULAR HEMOGLOBIN 26.6 pg (28.0-32.0); MEAN CORPUSCULAR VOLUME 82.2 fL (80.0-94.0); MEAN PLATELET VOLUME 7.4 fl (7.4-10.4); PLATELET 53 x1000/uL (130-400); RED BLOOD CELL COUNT 3.15 mill/uL (4.7-6.1); RED CELL DISTRIBUTION WIDTH 19.1 % (11.6-14.6)
[2022-11-27 19:14] LABS: CHLORIDE 111 mEq/L (98-107)
[2022-11-27 19:35] LABS: ETHANOL BLOOD 366 mg/dL (-10)
[2022-11-27 19:45] LABS: PLATELET ESTIMATE DECREASED
== END 2022-11-28 00:40 | disposition home or self-care (01) ==
LOC: ER 17:54
DX: F10.229 Alcohol dependence with intoxication, unspecified (principal); E86.0 Dehydration; Z79.899 Other long term (current) drug therapy; Y90.8 Blood alcohol level of 240 mg/100 ml or more; G40.909 Epilepsy, unspecified, not intractable, without status epilepticus; Z91.013 Allergy to seafood
CPT/HCPCS: 36415; 80053; 80320; 85025; 99283; G0480

== ENCOUNTER 2023-05-16 14:40 | Emergency (ER) | payer MEDICAID ==
[~2023-05-16] VITALS: Ht 172.7 cm; Wt 87.0 kg
[2023-05-16 14:44] VITALS: O2SAT 99
[2023-05-16] MEDS ORDERED: LEVETIRACETAM 500MG PREMIX 100 ML IV ONE (15:15)
[2023-05-16] MEDS ORDERED: LORAZEPAM 2MG/ML INJ IV ONE (15:15)
[2023-05-16 16:08] LABS: BASOPHILS % 2.7 % (0.0-2.0); EOSINOPHILS % 3.5 % (0.0-5.0); HEMATOCRIT. 34.2 % (42.0-52.0); HEMOGLOBIN. 10.6 g/dL (14.0-18.0); LYMPHOCYTES % 40.3 % (20.0-50.0); MEAN CORPUSCULAR HEMOGLOBIN 25.1 pg (28.0-32.0); MEAN CORPUSCULAR VOLUME 81.1 fL (80.0-94.0); MEAN PLATELET VOLUME 8.6 fl (7.4-10.4); MONOCYTES % 10.8 % (2.0-8.0); NEUTROPHILS % 42.7 % (40.0-76.0); PLATELET 61 x1000/uL (130-400); RED BLOOD CELL COUNT 4.22 mill/uL (4.7-6.1); RED CELL DISTRIBUTION WIDTH 20.9 % (11.6-14.6); WHITE BLOOD COUNT 2.6 x1000/uL (4.5-11.0)
[2023-05-16 16:34] LABS: ALANINE AMINOTRANSFERASE 26 IU/L (10-49); ALBUMIN 3.4 g/dL (3.2-4.8); ASPARTATE AMINOTRANSFERASE 90 IU/L (<34); BILIRUBIN TOTAL 1.1 mg/dL (0.1-1.0); CALCIUM 8.3 mg/dL (8.7-10.4); CARBON DIOXIDE 24 mEq/L (21-32); CHLORIDE 106 mEq/L (98-107); CREATININE 0.4 mg/dL (0.6-1.3); ETHANOL BLOOD 306 mg/dL (<10); GLUCOSE 98 mg/dL (70-105); POTASSIUM 3.7 mEq/L (3.5-5.1); PROTEIN TOTAL 7.5 g/dL (6.0-8.3); SODIUM 139 mEq/L (136-145); TROPONIN I HIGH SENSITIVITY 9 ng/L (3.0-53); UREA NITROGEN BLOOD 5 mg/dL (9-23)
[2023-05-16] MEDS ORDERED: SULF15DR26 RIGHTEYE (20:02)
[2023-05-16] MEDS ORDERED: KEPP500 MT (20:02)
[2023-05-16 21:11] VITALS: BP 136/91; PULSE 90; RESP 17; TEMP 98.4
== END 2023-05-16 21:13 | disposition home or self-care (01) ==
LOC: ER 14:40
DX: G40.909 Epilepsy, unspecified, not intractable, without status epilepticus (principal); F10.129 Alcohol abuse with intoxication, unspecified; H10.9 Unspecified conjunctivitis; Y90.9 Presence of alcohol in blood, level not specified
CPT/HCPCS: 80053; 80320; 83880; 83605; 85025; 84484; 36415; 71045; 93005; 96365; 96375; 99285; 82542; J1953; J2060; G0480

== ENCOUNTER 2023-08-20 10:13 | Emergency (ER) | payer MEDICAID ==
[~2023-08-20] VITALS: Ht 175.3 cm; Wt 91.0 kg
[~2023-08-20 10:13] MED LIST changes: +SULF15DR26 RIGHTEYE
[2023-08-20 10:15] VITALS: BP 147/95; PULSE 102; RESP 17; TEMP 97.8; O2SAT 99
[2023-08-20] MEDS: LIDOCAINE HCL/PF 1% 10 MG/ML 5ML VIAL INFIL ONE (10:30)
[2023-08-20] MEDS ORDERED: TETANUS, DIPHTHERIA, PERTUSSIS VAC/PF 0.5ML (>10YR OLD) IM ONE (10:30)
[2023-08-20] MEDS ORDERED: AMOX1TAB16 MT (10:47)
== END 2023-08-20 15:52 | disposition home or self-care (01) ==
LOC: ER 10:13
DX: S41.111A Laceration without foreign body of right upper arm, initial encounter (principal); R56.9 Unspecified convulsions; F10.20 Alcohol dependence, uncomplicated; Z79.899 Other long term (current) drug therapy; W54.0XXA Bitten by dog, initial encounter; Y93.89 Activity, other specified; Y92.89 Other specified places as the place of occurrence of the external cause; Y99.8 Other external cause status
CPT/HCPCS: 12002; 99283; J3490; Z7610

== ENCOUNTER 2023-09-01 11:56 | Emergency (ER) | payer MEDICAID ==
[~2023-09-01] VITALS: Ht 177.8 cm; Wt 100.0 kg
[~2023-09-01 11:56] MED LIST changes: +AMOX1TAB16 MT
[2023-09-01 11:57] VITALS: BP 126/51; PULSE 84; RESP 18; TEMP 98.2; O2SAT 99
== END 2023-09-01 15:20 | disposition left against medical advice (07) ==
LOC: ER 11:56
DX: R68.89 Other general symptoms and signs (principal); Z53.21 Procedure and treatment not carried out due to patient leaving prior to being seen by health care provider

== ENCOUNTER 2024-10-01 20:38 | Emergency (ER) | payer MEDICAID ==
[~2024-10-01] VITALS: Ht 170.2 cm; Wt 82.0 kg
[~2024-10-01 20:38] MED LIST changes: -AMOX1TAB16 MT; -KEPP500 MT; -KEPP500 PO; -SULF15DR26 RIGHTEYE; -TRAZ150T78 PO
[2024-10-01 20:40] VITALS: TEMP 36.9; O2SAT 98
[2024-10-01 21:12] LABS: BASOPHILS % 1.5 % (0.0-2.0); EOSINOPHILS % 5.2 % (0.0-5.0); HEMATOCRIT. 32.7 % (42.0-52.0); HEMOGLOBIN. 10.2 g/dL (14.0-18.0); LYMPHOCYTES % 36.9 % (20.0-50.0); MEAN CORPUSCULAR HEMOGLOBIN 26.1 pg (28.0-32.0); MEAN CORPUSCULAR HGB CONC 31.3 g/dL (31.0-37.0); MEAN CORPUSCULAR VOLUME 83.5 fL (80.0-94.0); MONOCYTES % 12.1 % (2.0-8.0); NEUTROPHILS % 44.3 % (40.0-76.0); PLATELET 109 x1000/uL (130-400); RED BLOOD CELL COUNT 3.92 mill/uL (4.7-6.1); RED CELL DISTRIBUTION WIDTH 18.4 % (11.6-14.6); WHITE BLOOD COUNT 4.7 x1000/uL (4.5-11.0)
[2024-10-01 21:15] LABS: CHLORIDE 104 mEq/L (98-107); POTASSIUM 3.5 mEq/L (3.5-5.1); SODIUM 138 mEq/L (136-145)
[2024-10-01 21:16] LABS: CALCIUM 8.1 mg/dL (8.7-10.4); CARBON DIOXIDE 26 mEq/L (21-32)
[2024-10-01 21:21] LABS: CREATININE 0.6 mg/dL (0.6-1.3); GLUCOSE 109 mg/dL (70-105); UREA NITROGEN BLOOD 6 mg/dL (9-23)
[2024-10-01 21:22] LABS: ETHANOL BLOOD 279 mg/dL (<10)
[2024-10-01] MEDS: LEVETIRACETAM 1000MG PREMIX 100 ML IV ONE (21:37)
[2024-10-01] MEDS: SODIUM CHLORIDE 0.9% 1,000 ML IV ONE (22:03)
[2024-10-01 22:21] LABS: *AMPHETAMINES SCREEN URINE NEGATIVE (NEGATIVE); *BARBITURATES SCREEN URINE NEGATIVE (NEGATIVE); *BENZODIAZEPINES SCREEN URINE NEGATIVE (NEGATIVE); *COCAINE SCREEN URINE NEGATIVE (NEGATIVE); CANNABINOID URINE SCREEN NEGATIVE (NEGATIVE); ECSTASY MDMA SCREEN URINE NEGATIVE (NEGATIVE); METHADONE URINE SCREEN NEGATIVE (NEGATIVE); OPIATES URINE SCREEN NEGATIVE (NEGATIVE); PHENCYCLIDINE URINE SCREEN NEGATIVE (NEGATIVE)
[2024-10-01] MEDS: CALCIUM GLUCONATE 1GM PREMIX 50 ML IV NR (22:35)
[2024-10-02 01:09] VITALS: BP 111/54; PULSE 89; RESP 18; O2SAT 99
== END 2024-10-02 02:46 | disposition home or self-care (01) ==
LOC: ER 20:38
DX: F10.129 Alcohol abuse with intoxication, unspecified (principal); R07.81 Pleurodynia; R56.9 Unspecified convulsions; Z91.148 Patient's other noncompliance with medication regimen for other reason; Z79.899 Other long term (current) drug therapy; Y90.8 Blood alcohol level of 240 mg/100 ml or more
CPT/HCPCS: 80305; 80048; 80320; 85025; 36415; 71101; 70450; 96367; 96365; 99285; J1953; J0610; Z7610; G0480

== ENCOUNTER 2024-11-08 16:39 | Inpatient (IN) | payer MEDICAID ==
[~2024-11-08] VITALS: Ht 180.3 cm; Wt 85.8 kg
[2024-11-08 17:38] LABS: BASOPHILS % 2.1 % (0.0-2.0); EOSINOPHILS % 8.7 % (0.0-5.0); HEMATOCRIT. 35.4 % (42.0-52.0); HEMOGLOBIN. 11.0 g/dL (14.0-18.0); LYMPHOCYTES % 53.4 % (20.0-50.0); MEAN PLATELET VOLUME 8.8 fl (7.4-10.4); MONOCYTES % 7.1 % (2.0-8.0); NEUTROPHILS % 28.7 % (40.0-76.0); PLATELET 123 x1000/uL (130-400); RED BLOOD CELL COUNT 4.32 mill/uL (4.7-6.1); RED CELL DISTRIBUTION WIDTH 20.3 % (11.6-14.6)
[2024-11-08] MEDS: LEVETIRACETAM 1000MG PREMIX 100 ML IV SCH (18:57)
[2024-11-08 19:42] LABS: CREATININE 0.6 mg/dL (0.6-1.3)
[2024-11-08 19:43] LABS: ETHANOL BLOOD 300 mg/dL (<10); UREA NITROGEN BLOOD < 5 mg/dL (9-23)
[2024-11-08 19:44] LABS: ASPARTATE AMINOTRANSFERASE 66 IU/L (<34); TROPONIN I HIGH SENSITIVITY < 4 ng/L (3.0-53)
[2024-11-08 19:45] LABS: BILIRUBIN DIRECT 0.9 mg/dL (<=3.0); BILIRUBIN TOTAL 1.6 mg/dL (0.1-1.0); PROTEIN TOTAL 7.2 g/dL (6.0-8.3)
[2024-11-08] MEDS: FOLIC ACID 1 MG, THIAMINE HCL 100 MG, MVI, ADULT NO.1 10 ML in DEXTROSE 5% WATER 1,000 ML IV ONE (20:08)
[2024-11-08] MEDS ORDERED: LEVETIRACETAM 1000MG PREMIX 100 ML IV SCH (21:00)
[2024-11-08 22:00] VITALS: BP 128/62; PULSE 83; RESP 20; TEMP 36.7; O2SAT 100
[2024-11-08 22:18] LABS: *AMPHETAMINES SCREEN URINE NEGATIVE (NEGATIVE); *BARBITURATES SCREEN URINE NEGATIVE (NEGATIVE); *BENZODIAZEPINES SCREEN URINE NEGATIVE (NEGATIVE); *COCAINE SCREEN URINE NEGATIVE (NEGATIVE)
[2024-11-08 22:19] LABS: CANNABINOID URINE SCREEN NEGATIVE (NEGATIVE); ECSTASY MDMA SCREEN URINE NEGATIVE (NEGATIVE); METHADONE URINE SCREEN NEGATIVE (NEGATIVE); OPIATES URINE SCREEN NEGATIVE (NEGATIVE); PHENCYCLIDINE URINE SCREEN NEGATIVE (NEGATIVE)
[2024-11-08] MEDS ORDERED: ONDANSETRON HCL 4MG/2ML INJ IV PRN (22:30)
[2024-11-08] MEDS ORDERED: LORAZEPAM 2MG/ML UD SYRINGE IV PRN (22:30)
[2024-11-08 22:41] LABS: CLARITY URINE CLEAR (CLEAR); COLOR URINE DARK YELLOW (YELLOW); GLUCOSE URINE NEGATIVE (NEGATIVE); KETONES URINE NEGATIVE (NEGATIVE); LEUKOCYTE ESTERASE URINE NEGATIVE (NEGATIVE); NITRITE URINE NEGATIVE (NEGATIVE); OCCULT BLOOD URINE NEGATIVE (NEGATIVE); PH URINE 5.5 (4.5-8.0); PROTEIN URINE NEGATIVE (NEGATIVE); SPECIFIC GRAVITY URINE 1.019 (1.005-1.030); UROBILINOGEN URINE 2.0 E.U./dL (0.2-1.0)
[2024-11-08 22:49] LABS: BACTERIA URINE TRACE; SQUAMOUS EPITHELIAL CELL URINE FEW /lpf (RARE/1+)
[2024-11-08 22:50] LABS: RBC URINE NONE SEEN /hpf (0-2); WBC URINE 0-2 /hpf (0-2)
[2024-11-08] MEDS ORDERED: TRAZ-252 PO (22:51)
[2024-11-08 23:07] VITALS: BP 128/62; PULSE 83; RESP 20; TEMP 36.7
[2024-11-09] VITALS: BP 116/83; PULSE 87; RESP 20; TEMP 36.7; O2SAT 100
[2024-11-09 04:00] VITALS: BP 135/78; PULSE 80; RESP 19; TEMP 36.4; O2SAT 100
[2024-11-09 06:50] LABS: TROPONIN I HIGH SENSITIVITY 5 ng/L (3.0-53)
[2024-11-09 08:00] VITALS: BP 153/83; PULSE 79; RESP 18; TEMP 37.1; O2SAT 98
[2024-11-09] MEDS: MULTIVITAMINS,THER W-MINERALS TABLET PO SCH (08:49)
[2024-11-09] MEDS: PANTOPRAZOLE 40MG DR TABLET PO SCH (08:50)
[2024-11-09] MEDS: LEVETIRACETAM 500MG TABLET PO SCH (08:50)
[2024-11-09] MEDS: THIAMINE HCL 100MG TABLET PO SCH (08:50)
[2024-11-09] MEDS: FOLIC ACID 1MG TABLET PO SCH (08:50)
[2024-11-09 12:00] VITALS: BP 144/66; PULSE 80; RESP 17; TEMP 36.7; O2SAT 98
[2024-11-09 16:00] VITALS: BP 110/93; PULSE 86; RESP 15; TEMP 35.7; O2SAT 99
[2024-11-09 20:00] VITALS: BP 145/67; PULSE 82; RESP 18; TEMP 37.2; O2SAT 99
[2024-11-10] VITALS: BP 132/78; PULSE 92; RESP 20; TEMP 36.7; O2SAT 98
[2024-11-10 04:00] VITALS: BP 128/88; PULSE 83; RESP 18; TEMP 37.1; O2SAT 100
[2024-11-10 08:00] VITALS: BP 129/64; PULSE 77; RESP 18; TEMP 37.2; O2SAT 100
[2024-11-10 12:00] VITALS: BP 123/72; PULSE 70; RESP 18; TEMP 36.8; O2SAT 100
[2024-11-10 13:23] VITALS: BP 123/72; PULSE 70; TEMP 98.3; O2SAT 100
== END 2024-11-10 14:05 | disposition home or self-care (01) | DRG 53 ==
LOC: ER 16:39 → EDBEDREQ 20:46 → EDBEDREQTM 20:46 → 7WST 21:47
PROVIDERS: ADMIT Internal Medicine; ATTEND Internal Medicine
DX: G40.89 Other seizures (principal); D61.818 Other pancytopenia; F10.229 Alcohol dependence with intoxication, unspecified; F10.239 Alcohol dependence with withdrawal, unspecified; Z79.899 Other long term (current) drug therapy
CPT/HCPCS: 36415; 71045; 80048; 80076; 80305; 80320; 81003; 84484; 85025; 87340; 99285; A4606; J1953; J3411; J3490; J7070; G0480

== ENCOUNTER 2025-04-02 11:37 | Emergency (ER) | payer MEDICAID ==
[~2025-04-02] VITALS: Ht 167.6 cm; Wt 72.0 kg
[~2025-04-02 11:37] MED LIST changes: +FOLI-43 MT; +IBUP-1455 MT; -IBUP-2029 MT; +MULT-1146 MT; +THIA100T88 MT; +TRAZ-252 PO
[2025-04-02 11:39] VITALS: O2SAT 97
[2025-04-02] MEDS ORDERED: IBUP-1455 MT (12:08)
[2025-04-02] MEDS ORDERED: LIDO700A30 TP (12:08)
[2025-04-02 12:15] VITALS: BP 116/68; PULSE 89; RESP 16; TEMP 37; O2SAT 98
[2025-04-02] MEDS: KETOROLAC 30MG/ML VIAL IM ONE (12:15)
== END 2025-04-02 12:16 | disposition home or self-care (01) ==
LOC: ER 11:37
DX: M54.50 Low back pain, unspecified (principal); F10.90 Alcohol use, unspecified, uncomplicated; Z79.899 Other long term (current) drug therapy; Y90.9 Presence of alcohol in blood, level not specified
CPT/HCPCS: 99283; 96372; J1885